=== PATIENT | female | born 1945 | race Caucasian/White ===

== ENCOUNTER → 2017-11-13 | Outpatient (CLI) | payer OTHER ==
[~2017-11-13] MED LIST: AMLO-110 PO; ASPI-390 PO; DIFL0.0519; LEVO75TA PO; LSN/2025 PO; OFLO0.3S4 OPL; PRLSR20 PO
[2017-11-13 09:44] LABS: BASO % 0.4 %; BASO ABS # 0.03 K/uL (0-0.2); EOS % 2.8 %; EOS ABS # 0.22 K/uL (0-0.5); HEMATOCRIT 37.8 % (37-47); HEMOGLOBIN 12.7 g/dL (12.0-16.0); IG# 0.02 K/uL (0.00-0.02); LYMPH % 34.5 %; LYMPH ABS # 2.75 K/uL (1.2-3.4); MEAN CELL VOLUME 86.5 fL (80-100); MEAN CORPUSCULAR HEMOGLOBIN 29.1 pg (25-34); MEAN CORPUSCULAR HGB CONC 33.6 g/dl (32-36); MEAN PLATELET VOLUME 10.1 fL (7.4-10.4); MONO % 6.1 %; MONO ABS # 0.49 K/uL (0.11-0.59); NEUT % 55.9 %; NEUT ABS # 4.46 K/uL (1.4-6.5); PLATELET COUNT 302 K/uL (130-400); RED CELL DISTRIBUTION WIDTH CV 13.7 % (11.5-14.5); RED CELL DISTRIBUTION WIDTH SD 43.4 fL (36.4-46.3); WHITE BLOOD COUNT 7.97 K/uL (4.8-10.8)
[2017-11-13 10:00] LABS: BLOOD UREA NITROGEN 24 mg/dl (7-18); CALCIUM 9.2 mg/dl (8.5-10.1); CARBON DIOXIDE 28 mmol/L (21-32); CREATININE 1.06 mg/dl (0.60-1.20); GLUCOSE 99 mg/dl (70-99); POTASSIUM 3.4 mmol/L (3.5-5.1); SODIUM 140 mmol/L (136-145)
== END | disposition home or self-care (01) ==
LOC: C.LAB 08:45
PROVIDERS: ATTEND Orthopaedic Surgery
DX: M25.511 Pain in right shoulder (principal)

== ENCOUNTER 2021-09-09 06:46 | Observation (INO) ==
--- NOTE | 2021-08-15 17:50 | PAT Medication Instructions ---
Medication Instructions Date of Service August 15, 2021 Home Medications levothyroxine 75 mcg capsule 75 mcg PO QAM omeprazole 20 mg capsule,delayed release 20 mg PO QAM lisinopril 20 mg-hydrochlorothiazide 25 mg tablet 1 tab PO QAM meloxicam 15 mg tablet 15 mg PO UD PRN ASK your surgeon for instructions meloxicam 15 mg tablet 15 mg PO UD PRN DO NOT take the morning of surgery lisinopril 20 mg-hydrochlorothiazide 25 mg tablet 1 tab PO QAM Take morning of surgery With a small sip of water, OTHERWISE NOTHING TO EAT OR DRINK AFTER MIDNIGHT: levothyroxine 75 mcg capsule 75 mcg PO QAM omeprazole 20 mg capsule,delayed release 20 mg PO QAM Other Notes If you have any questions please call us at [phone] or [phone] or [phone] or [phone]
--- NOTE | 2021-08-17 09:34 | Anesthesiology Consultation ---
Date of Service August 17, 2021 Assessment & Plan (1) Encounter for pre-operative examination: Chart Review Chart Review: Acceptable Risk for Surgery (pending preop Covid testing results ) and Patient seen in Pre Admission Testing Pt concerned with SAB- leaning towards [facility]- does not want to have any awareness during surgery- pt will discuss with anesthesiologist DOS to make final decision -Due to age and anxiety- patient is NOT an acceptable Same Day Joint Candidate- patient feels more comfortable staying over night Per PAT appt on 08/16/21, patient denies any recent travel or large group activities. No known Covid positive exposures or Covid related symptoms. No known Covid infection in the past 90 days. Pt fully vaccinated for Covid. Preop Covid testing scheduled 09/07/21 = will await results. Educated on importance of self quarantining, social distancing and wearing mask in public for the patient one week prior to surgery and after Covid testing done Left PCE with IOL Implant 04/25/17= Done under [facility] with LMA #4. Atraumatic LMA insertion Teaching & Discussion Pre-Anesthesia Teaching/Discussion Notes: Instructed NPO after midnight before surgery,except medications with 15 cc of water. Medication instructions provided according to the PAT guidelines. History Surgery Operation Date: 09/09/21 11:55 Proposed Procedures p Left Anterior Hip Arthroplasty - Gabriel Sanders DO Height/Weight Height: 5 ft 6.5 in Weight: 92.1 kg Allergies Allergy/AdvReac Type Severity Reaction Status Date / Time Iodinated Contrast Media Allergy Severe anaphalaxis Verified 08/11/21 15:36 cat dander Allergy Unknown wheeze Verified 08/11/21 15:36 Medications Home Medications Medication Instructions Recorded Confirmed Last Taken levothyroxine 75 mcg capsule 75 mcg PO QAM 05/10/21 08/11/21 Unknown omeprazole 20 mg capsule,delayed 20 mg PO QAM 05/10/21 08/11/21 Unknown release lisinopril 20 1 tab PO QAM 08/11/21 08/11/21 Unknown mg-hydrochlorothiazide 25 mg tablet meloxicam 15 mg tablet 15 mg PO UD PRN 08/11/21 08/11/21 Unknown 3-in-1 Commode #1 ea 08/17/21 08/17/21 Unknown Past Medical History Medical History Acid reflux Controlled and stable Breast lump PRESENT FOR 3 YRS ...MONITORING , RIGHT - STABLE Feeling anxious ABOUT UPCOMING SURGERY / DO NOT LIKE TO KNOW WHAT IS GOING ON - CANNOT DO TWIGHLIGHT SLEEP "TERRIFIED" History of anesthesia reaction OVER 30 YR AGO ; WOKE UP DURING A SURGERY, AWARE OF SURROUNDINGS AND COULD HEAR THINGS - PT IS NOT SURE WHAT SURGERY HTN (hypertension) Hypothyroidism Scoliosis CAN'T LIE FLAT ON BACK AND GET UP ON OWN - NEED A PILLOW IN THE "SMALL OF MY BACK" Exercise / Class Metabolic Activity III < 4 Walking/Shop/Light housework (one flight of stairs- mild SOB, no chest pain- uses cane ) Past Family History Family History Other Family history of diabetes mellitus Past Surgical History Surgical History History of breast biopsy X3 BENIGN History of cataract surgery left 2017 History of colonoscopy with polypectomy RECENT, BENIGN...NO FURTHER COLONOSCOPY FOLLOWS NEEDED History of endoscopy X2 OR 3 History of hysterectomy History of laparoscopy History of shoulder surgery RIGHT History of surgery REMOVAL OF ABDOMINAL TUMOR - BENIGN Past Anesthesia History No Hx of Anesthesia Complications (with exception to awareness during surgery - in 1970s unsure of what surgery ) and No Family Hx of Anesthesia Complications History of PONV No Hx of PONV and Hx of Motion Sickness Social History Smoking Status: Never smoker Do You Dip or Chew Tobacco: No Hx Alcohol Use: Yes Alcohol type: wine alcohol intake frequency: holidays/special occasions only substance use type: does not use Review of Systems Hx of snoring- no witness apnea - no hx of sleep study Patient denies chest pain, shortness of breath at rest, reflux, cough, wheezing, palpitations. No hx of seizures, stroke, [place] No hx of blood clots or blood transfusions Physical Exam Vital Signs VITALS BP 138/86 P 83 TEMP 98.3 SP02 96% RESP 16 Constitutional no acute distress ENMT Mouth: + small oral opening; no TMJ clicking Thyromental Distance: > or= 3.5 Finger Breadths Mallampati Class: III Missing molars Neck + limited neck extension (moderate ) Respiratory normal respiratory effort; no respiratory distress Auscultation: lungs clear to auscultation bilaterally; no wheezes Cardiovascular Rate/Rhythm: regular rate and regular rhythm Heart Sounds: no murmur Vessels: no carotid bruit Musculoskeletal Spine: no pain with cervical ROM Extremities: extremities normal to inspection Psychiatric Orientation: alert Lab Results Anesthesia Preop Results Results Anesthesia Widget: WBC 8.97 K/uL (4.8-10.8) 08/17/21 Hgb 12.9 g/dL (12.0-16.0) 08/17/21 Hct 38.5 % (37-47) 08/17/21 Plt 342 K/uL (130-400) 08/17/21 Na 140 mmol/L (136-145) 08/17/21 K 3.3 mmol/L (3.5-5.1) L 08/17/21 Cl 105 mmol/L (98-107) 08/17/21 CO2 28 mmol/L (21-32) 08/17/21 BUN 30 mg/dl (6-23) H 08/17/21 Creat 0.91 mg/dl (0.6-1.2) 08/17/21 Glucose Level 89 mg/dl (70-99(Fasting)) 08/17/21 PT 10.1 Seconds (9.0-12.0) 08/17/21 PTT 31.3 Seconds (21.0-31.0) H 08/17/21 INR 1.0 (0.9-1.1) 08/17/21 Blood Type B Positive 08/17/21 Antibody Screen NEGATIVE 08/17/21 Testing Electrocardiogram Date: 08/17/21 Sinus rhythm with sinus arrhythmia at 73 bpm. Normal EKG per cardio. Chest X-Ray Date: 08/17/21 Findings: + NAD and + cardiomegaly (mild) The heart is mildly enlarged noting atherosclerotic calcification of the thoracic aorta. The pulmonary vasculature is noncongested. Nonspecific interstitial thickening is likely chronic. There is mild bibasilar scarring/atelectasis. The lungs and pleural spaces are otherwise clear. There is no pneumothorax.
--- NOTE | 2021-09-08 07:25 | History & Physical Report ---
Date of Service September 08, 2021 Assessment & Plan (1) Osteoarthritis of left hip: We will proceed with a left anterior total of arthroplasty. Postoperatively she will be kept overnight in the hospital for postoperative medical management. She will be on aspirin for DVT prophylaxis. She plans to use energy physical therapy upon discharge. History of Present Illness Chief Complaint: Osteoarthritis of the left hip. Primary Care Provider: Alesha Reddy DO Joslyn is a pleasant 76-year-old female who is been doing chronic worsening left hip and groin pain. X-rays and clinical examination have been diagnostic for advanced osteoarthritis of the left hip. After failing conservative treatment, she elected proceed with a left anterior total hip arthroplasty. Allergies Allergy/AdvReac Type Severity Reaction Status Date / Time Iodinated Contrast Media Allergy Severe anaphalaxis Verified 08/11/21 15:36 cat dander Allergy Unknown wheeze Verified 08/11/21 15:36 Home Medications Medication Instructions Recorded Confirmed Type levothyroxine 75 mcg capsule 75 mcg PO QAM 05/10/21 08/11/21 History omeprazole 20 mg capsule,delayed 20 mg PO QAM 05/10/21 08/11/21 History release lisinopril 20 1 tab PO QAM 08/11/21 08/11/21 History mg-hydrochlorothiazide 25 mg tablet meloxicam 15 mg tablet 15 mg PO UD PRN 08/11/21 08/11/21 History 3-in-1 Commode #1 ea 08/17/21 08/17/21 Rx Wheeled Walker #1 ea 09/07/21 Rx Wheeled Walker #1 ea 09/07/21 Rx Past Med/Surg History Medical History Acid reflux Controlled and stable Breast lump PRESENT FOR 3 YRS ...MONITORING , RIGHT - STABLE Feeling anxious ABOUT UPCOMING SURGERY / DO NOT LIKE TO KNOW WHAT IS GOING ON - CANNOT DO TWIGHLIGHT SLEEP "TERRIFIED" History of anesthesia reaction OVER 30 YR AGO ; WOKE UP DURING A SURGERY, AWARE OF SURROUNDINGS AND COULD HEAR THINGS - PT IS NOT SURE WHAT SURGERY HTN (hypertension) Hypothyroidism Scoliosis CAN'T LIE FLAT ON BACK AND GET UP ON OWN - NEED A PILLOW IN THE "SMALL OF MY BACK" Surgical History History of breast biopsy X3 BENIGN History of cataract surgery left 2017 History of colonoscopy with polypectomy RECENT, BENIGN...NO FURTHER COLONOSCOPY FOLLOWS NEEDED History of endoscopy X2 OR 3 History of hysterectomy History of laparoscopy History of shoulder surgery RIGHT History of surgery REMOVAL OF ABDOMINAL TUMOR - BENIGN Family History Other Family history of diabetes mellitus Social History Smoking Status: Never smoker Hx Alcohol Use: Yes Alcohol type: wine Preferred Language: Kiswahili Communication Ability: Effective Job Service Consultant Required: No Beliefs That Will Affect Care: Moravian Moravian Beliefs: [place] Current Living Situation: Alone Feels Safe at Home: Yes Assistive Devices: Cane and Glasses Review of Systems All systems reviewed & are unremarkable except as noted in HPI & below. Physical Exam On physical examination of the left hip, she is unable to lie flat. I can flex her to about 90 degrees. She has 0 degrees of internal rotation to 1 degrees of external rotation. Significant pain at end ranges of motion. Constitutional WD/WN, vitals as above Eyes PERRL, conjunctivae normal, anicteric sclerae ENMT external ear and nose normal, oropharynx normal Neck trachea midline, no thyromegaly Respiratory normal respiratory effort Cardiovascular RRR, no murmur, no edema Gastrointestinal (Abdomen) normal bowel sounds, soft, nontender, no hepatosplenomegaly Psychiatric A+Ox3, euthymic affect Results & Data Results & Data Laboratory Results . Diagnostic Findings X-rays of the left hip show osteoarthritis with joint space narrowing, osteophyte formation, and [id number] articulation PG Care Time/CCT Total # of Minutes Spent Total Time Spent with Patient: Total time spent is greater than 50% in coordination of care (as documented) at patient's floor/unit and/or counseling patient: Coding Level of Care Code None Diagnoses Osteoarthritis of left hip M16.12
[~2021-09-09 06:46] MED LIST changes: +ACETAMINOPHEN 500 MG TAB PO SCH; -AMLO-110 PO; -ASPI-390 PO; -DIFL0.0519; +FAMOTIDINE 20 MG TAB PO SCH; +GABAPENTIN 300 MG CAP PO SCH; +Ketorolac (*for OR use only*) 30 MG, dexAMETHasone 4 MG, KETAMINE HCL (**OR use only) 1... INFIL SCH; -LEVO75TA PO; +LR 15ML/HR IV SCH; +LR 60ML/HR IV SCH; -LSN/2025 PO; -OFLO0.3S4 OPL; -PRLSR20 PO; +TRANEXAMIC ACID 1,000 MG **IV Intra-op IV SCH; +TRANEXAMIC ACID 1,000 MG **IV Pre-op IV SCH; +ceFAZolin 2000MG 2,000 MG/15 ML SYR IV SCH; +dexAMETHasone 4 MG TAB PO SCH
[2021-09-09] MEDS ORDERED: BUPIVACAINE 0.5 % 5 MG/1 ML PF 10ML VIAL ONE (07:16)
--- NOTE | 2021-09-09 08:20 | History & Physical Bridge Note ---
Date of Service September 09, 2021 History & Physical Bridge Note I have examined the patient, reviewed the History & Physical and in the interval since the performance of the History & Physical I have noted the following changes of clinical significance: no changes noted
[2021-09-09] MEDS ORDERED: LIDOCAINE 2% 2 ML VIAL/AMP(20MG/ML) INFIL ONE (08:44)
[2021-09-09] MEDS ORDERED: PROPOFOL IV EMULSION 10 MG/ML 20 ML VIAL IV ONE (08:44)
[2021-09-09] MEDS ORDERED: MIDAZOLAM HCL 1 MG/ML 2ML VIAL ONE (08:45)
[2021-09-09] MEDS ORDERED: fentaNYL citrate 100 MCG/2 ML VIAL ONE ×3 (08:49→10:44)
[2021-09-09] MEDS ORDERED: ATROPINE SULFATE 0.1 MG/ML 10ML SYR IV PRN (08:51)
[2021-09-09] MEDS ORDERED: ePHEDrine sulfate 50 MG/ML AMP IV PRN (08:51)
[2021-09-09] MEDS ORDERED: ONDANSETRON INJ 2 MG/ML 2 ML VIAL IV PRN ×2 (08:51→12:53)
[2021-09-09] MEDS ORDERED: ORTHO JOINT ANESTHETIC ONE (08:52)
[2021-09-09] MEDS ORDERED: KETAMINE 50 MG/5 ML SYRINGE ONE (09:29)
--- NOTE | 2021-09-09 10:41 | Operative Report ---
PG Post Operative Report Pre & Post Diagnosis Operation Date: 09/09/21 09:20 Pre-Op Diagnosis: Degenerative Joint Disease Left Hip Post-Op Diagnosis: Degenerative Joint Disease Left Hip I identified the patient and participated in the time-out.: Yes Procedure Operation Date: 09/09/21 09:20 Actual Procedures p Left Anterior Hip Arthroplasty(Left) - Gabriel Sanders DO Surgeon Gabriel Sanders DO Chute Tender Gabriel Goddard PAC Estimated Blood Loss 250 Findings Consistent with Post-Op Diagnosis Specimens Left femoral head Complications none Disposition Disposition: Recovery Room Indications Joslyn is a pleasant 76-year-old female has been doing chronic increasing left hip and groin pain. X-rays and clinical examination are diagnostic for advanced arthritis of the left hip. After failing conservative treatment, she elected proceed with a left total hip arthroplasty. Description of Procedure Implants used I used a [employer] total hip arthroplasty system with a size 5 standard Avenir Complete stem, a 50 mm G7 cup with a 25mm screw, an E1 polyethylene liner, a 36 mm ceramic head with a +3.5 neck. Joslyn arrived at the hospital for the above procedure. She was seen in the preoperative holding area and the operative extremity was identified and signed. She was given a spinal anesthetic, a preoperative antibiotic, and TXA. She was then taken back to the operating room and laid on the table in the supine position. She was given basic sedation. The operative leg was secured to a Puristst leg positioner. The hip was then prepped and draped in sterile fashion. A timeout was done and the patient and the operative extremity was properly identified. An anterior approach was used. Dissection was taken down through the fascia and the tensor muscle belly was retracted laterally and the rectus was retracted medially. The circumflex vessels were identified and ligated. The capsule was then incised and tagged for later repair. The femoral neck was then cut and the femoral head was removed. The acetabulum was exposed. Time was spent doing a complete circumferential labral release. Sequential reaming of the acetabulum up to a size 49 reamer was done. Final reamings were done under fluoroscopy to ensure appropriate version. A Biomet 50mm G7 cup was then impacted into place. A single 25 mm screw was placed. The E1 polyethylene liner was then snapped into place. Surrounding soft tissues were then injected with 100 cc of an orthopedic pain control cocktail. The proximal femur was then exposed. Sequential broaching up to a size 5 broach was done. Off that broach a size 36 head with a +3.5 neck was trialed. The hip was reduced and fluoroscopic images showed anatomic alignment of the implants in acceptable length. The broach was removed. The final size 5 standard offset Avenir Complete stem was then impacted into place. A ceramic 36mm head with a +3.5 neck was then impacted onto the stem and the hip was reduced. Final fluoroscopic images showed anatomic alignment of the hip. The capsule was then closed with #1 Vicryl suture. A dilute betadyne lavage was then done for 3 minutes. The joint was then irrigated with normal saline solution. The fascia was closed with #1 PDS suture. Skin was closed with 2-0 Vicryl, karmen, and a Silverlon dressing. She was then transferred to a hospital bed and taken to the post anesthesia care unit in stable condition. She tolerated the procedure well. Gabriel Goddard PA-C, was present for the entire procedure. He was critical for patient positioning, prepping, draping, retraction exposure, wound closure and application of sterile dressing. I attest to the content of the Intraoperative Record and any orders documented therein. Any exceptions are noted below.
[2021-09-09] MEDS ORDERED: ONDANSETRON INJ 2 MG/ML 2 ML VIAL ONE (11:14)
[2021-09-09] MEDS: fentaNYL citrate 100 MCG/2 ML VIAL IV PRN ×4 (11:28→12:00)
--- NOTE | 2021-09-09 11:32 | Fluoroscopy Report ---
FL hip LT 1V CLINICAL HISTORY: Left hip arthroplasty. COMPARISON STUDY: Left hip radiographs August 17, 2021. FLUOROSCOPY TIME: 17 seconds. FLUOROSCOPIC IMAGES: 2 FINDINGS: Fluoroscopy was provided during total left hip arthroplasty. There is an acetabular screw. No fracture is identified by fluoroscopy. IMPRESSION: Fluoroscopy provided during total left hip arthroplasty. ACT 112: Negative or not required by law. Electronically signed by: Sravan Milian M.D. 09/09/2021 11:31 AM
--- NOTE | 2021-09-09 11:43 | XRay Report ---
XR hip 1V LT w pelvis CLINICAL HISTORY: IN PACU - A/P PELVIS and LATERAL HIP TECHNIQUE: 2 views of the left hip and single frontal view of the pelvis were obtained. Comparison: None available at the time of this dictation. FINDINGS: Patient is status post total hip arthroplasty with expected postsurgical changes including soft tissu e swelling, subcutaneous emphysema, and surgical staple placement. No periarticular lucency or hardwa re fracture is seen. The alignment is anatomic. Mild degenerative changes are seen in the right hip. No soft tissue abnormality is seen. IMPRESSION: Expected postoperative appearance status post placement of total hip arthroplasty. ACT 112: Negative or not required by law. Electronically signed by: Radhames Jones M.D. 09/09/2021 11:42 AM
--- NOTE | 2021-09-09 12:12 | Anesthesiology Progress Note ---
Date of Service September 09, 2021 Anesthesia Post Procedure Vital Signs Vital Signs: Temp Pulse Pulse Resp BP BP Pulse Ox 09/09/21 12:05 97.5 F L 57 L 14 117/80 95 09/09/21 11:55 66 15 129/74 97 09/09/21 11:45 60 13 119/82 94 09/09/21 11:35 69 12 128/75 100 09/09/21 11:25 69 15 128/76 100 09/09/21 11:15 69 12 132/83 97 09/09/21 11:08 97.9 F 70 16 117/75 96 09/09/21 08:16 150/82 H 09/09/21 07:36 98.1 F 86 18 174/99 H 95 Pain Intensity Left Hip: Pain Intensity: 5 Transfer of Care Handoff Completed per policy Notes Mental Status: alert / awake / arousable and participated in evaluation Patient Amnestic to Procedure: Yes Nausea / Vomiting: adequately controlled Pain: adequately controlled Airway Patency, RR, SpO2: stable & adequate BP & HR: stable & adequate Hydration State: stable & adequate Anesthetic Complications: no major complications apparent and Pt Satisfied with anesthetic care
[2021-09-09] MEDS ORDERED: METOCLOPRAMIDE HCL INJ 5 MG/ML 2 ML VIAL IV PRN (12:53)
[2021-09-09] MEDS ORDERED: NALOXONE HCL 0.4 MG/1 ML VIAL/CARP IV PRN (12:53)
[2021-09-09] MEDS ORDERED: MAGNESIUM HYDROXIDE SUSP 30 ML UDC PO PRN (12:53)
[2021-09-09] MEDS ORDERED: bisacodyL 10 MG SUPP PR PRN (12:53)
[2021-09-09] MEDS: ACETAMINOPHEN 500 MG TAB PO SCH ×2 (13:47→21:41)
[2021-09-09] MEDS: KETOROLAC TROMETHAMINE 15 MG/ML VIAL IV SCH ×2 (15:52→21:42)
[2021-09-09] MEDS: ceFAZolin 2000MG 2,000 MG/15 ML SYR IV SCH (17:51)
[2021-09-09] MEDS: SODIUM CHLORIDE 0.9% 1000ML 1,000 ML IV SCH (17:51)
[2021-09-09] MEDS: DOCUSATE SODIUM 100 MG CAP PO SCH (21:41)
[2021-09-09] MEDS: ASPIRIN 81 MG ECTAB PO SCH (21:41)
[2021-09-09] MEDS: SENNA 8.6 MG TAB PO SCH ×2 (21:41→21:48)
[2021-09-09] MEDS: HYDROmorphone INJ 0.5 MG/0.5 ML SYR IV PRN (22:15)
[2021-09-09] MEDS: oxyCODONE HCL IR 5 MG TAB (IMMEDIATE RELEASE) PO PRN (23:53)
[2021-09-10] MEDS: ceFAZolin 2000MG 2,000 MG/15 ML SYR IV SCH (01:00)
[2021-09-10] MEDS: HYDROmorphone INJ 0.5 MG/0.5 ML SYR IV PRN (03:20)
[2021-09-10] MEDS: KETOROLAC TROMETHAMINE 15 MG/ML VIAL IV SCH ×4 (03:24→21:21)
[2021-09-10] MEDS: SODIUM CHLORIDE 0.9% 1000ML 1,000 ML IV SCH (03:36)
[2021-09-10] MEDS: LEVOTHYROXINE SODIUM 75 MCG TABLET PO SCH (06:45)
[2021-09-10] MEDS: ACETAMINOPHEN 500 MG TAB PO SCH ×3 (06:45→21:20)
[2021-09-10] MEDS: oxyCODONE HCL IR 5 MG TAB (IMMEDIATE RELEASE) PO PRN (06:45)
[2021-09-10] MEDS: PANTOprazole 40 MG TAB PO SCH (06:48)
[2021-09-10] MEDS ORDERED: dexAMETHasone 4 MG TAB PO SCH (08:00)
[2021-09-10] MEDS: DOCUSATE SODIUM 100 MG CAP PO SCH ×2 (08:51→21:20)
[2021-09-10] MEDS: ASPIRIN 81 MG ECTAB PO SCH ×2 (08:51→21:20)
[2021-09-10] MEDS: MULTIVITAMIN TAB PO SCH (08:51)
[2021-09-10] MEDS: LISINOPRIL/HCTZ 20/25MG 1 TAB PO SCH (08:51)
--- NOTE | 2021-09-10 11:24 | Orthopedic Progress Note ---
Date of Service September 10, 2021 Assessment & Plan (1) Status post left hip replacement: Overall, she is doing very well. She will be seen by physical therapy today for ambulation and range of motion exercises. She is on Aspirin for DVT prophylaxis. We will plan discharge to home later today. Nicola Jorgensen was seen and examined at bedside. She is doing very well. She has been ambulating to the bathroom. Her pain is controlled . Review of Systems All systems reviewed & are unremarkable except as noted in HPI & below. Physical Exam Her dressing is clean and dry. Her leg lengths are equal. She is nv intact. Results & Data Results & Data Laboratory Results . Diagnostic Findings . PG Care Time/CCT Total # of Minutes Spent Total Time Spent with Patient: Total time spent is greater than 50% in coordination of care (as documented) at patient's floor/unit and/or counseling patient: Coding Level of Care Code 11464 Post Operative Follow-Up Diagnoses Status post left hip replacement Z96.642
[2021-09-10] MEDS: SENNA 8.6 MG TAB PO SCH (21:20)
[2021-09-11] MEDS: KETOROLAC TROMETHAMINE 15 MG/ML VIAL IV SCH ×2 (05:26→08:34)
[2021-09-11] MEDS: LEVOTHYROXINE SODIUM 75 MCG TABLET PO SCH (05:27)
[2021-09-11] MEDS: ACETAMINOPHEN 500 MG TAB PO SCH (05:27)
--- NOTE | 2021-09-11 07:42 | Orthopedic Progress Note ---
Date of Service September 11, 2021 Assessment & Plan (1) Status post left hip replacement: She seems to be doing a lot better today. She is on aspirin for DVT prophylaxis. She will be seen by physical therapy later today for ambulation and range of motion exercises. If she is feeling well, she can be discharged home later today. She will follow-up with orthopedics in 2 weeks. Nicola Jorgensen was seen and examined at bedside this morning. Overall she is doing fairly well. She did not do great yesterday with therapy. She was having a lot of burning in her left leg. She did not feel safe going home. She says she feels a lot better today. Her pain is greatly reduced. Review of Systems All systems reviewed & are unremarkable except as noted in HPI & below. Physical Exam On physical examination of the left hip, the dressing is clean and dry. Her leg lengths are equal. She has active dorsiflexion plantarflexion of the left a nkle.. Results & Data Results & Data Laboratory Results . Diagnostic Findings . PG Care Time/CCT Total # of Minutes Spent Total Time Spent with Patient: Total time spent is greater than 50% in coordination of care (as documented) at patient's floor/unit and/or counseling patient: Coding Level of Care Code 40970 Post Operative Follow-Up Diagnoses Status post left hip replacement Z96.642
--- NOTE | 2021-09-11 07:44 | Discharge Summary ---
Date of Service September 11, 2021 Admission HPI (Per Admitting) Joslyn is a pleasant 76-year-old female who is been doing chronic worsening left hip and groin pain. X-rays and clinical examination have been diagnostic for advanced osteoarthritis of the left hip. After failing conservative treatment, she elected proceed with a left anterior total hip arthroplasty. Admission Exam (Per Admitting) On physical examination of the left hip, she is unable to lie flat. I can flex her to about 90 degrees. She has 0 degrees of internal rotation to 1 degrees of external rotation. Significant pain at end ranges of motion. Principal Diagnosis Same as "Discharge Diagnosis" noted below under Discharge Instructions. Discharge Exam On physical examination of the left hip, the dressing is clean and dry. Her leg lengths are equal. She has active dorsiflexion plantarflexion of the left ankle.. Discharge Data Procedures Performed Operation Date: 09/09/21 09:20 Actual Procedures p Left Anterior Hip Arthroplasty(Left) - Gabriel Sanders DO Ordered Studies 09/09/21 09:20 FL hip LT 1V Routine Hospital Course (1) Status post left hip replacement: On September 09, 2021 Joslyn arrived at [facility] and underwent a left hip replacement without complication. Postoperatively she was started on aspirin for DVT prophylaxis and transferred to the general orthopedic floors. Her hospital course was uneventful. On postop day #1 her vital signs were stable and her pain was relatively well controlled. During the physical therapy session, she walked about correction down the hallway and began having some burning in her left leg. She did not feel safe going home. The decision was made to keep her overnight. On postop day #2 she was doing much better. The burning has subsided. She was able to participate well with physical therapy doing ambulation and range of motion exercises. She was then discharged home. She will follow-up with orthopedics in 2 weeks. PG Care Time/CCT Total # of Minutes Spent Total Time Spent with Patient: Total time spent is greater than 50% in coordination of care (as documented) at patient's floor/unit and/or counseling patient: Discharge Plan Discharge Items Patient Disposition: Home - Home Health Services Reason For Visit: Degenerative Joint Disease Left Hip Discharge Diagnosis: Left hip replacement Activity: As commented below Non-emergency contact: Surgeon Call non-emergency contact if: your wound has increased redness and your wound has increased drainage Follow-up/Referrals: Alesha Reddy, [Primary Care Provider] - Diet: Regular Addtl Attending Provider Instructions: Activity and Therapy Recommendations: * If you are using [facility] then therapy will be provided at your home until they feel you have accomplished all of your goals. * If you are using [facility] then Physical Therapy will be provided until they feel you are ready to start Outpatient Physical Therapy. * If you are not using home therapy then Outpatient Physical Therapy should start about 3-5 days from your day of surgery. Therapy will last about 6-10 weeks * You were shown a series of exercises in the hospital. Do these exercises three times each day including the exercises you were shown in physical therapy. * Get up and walk several times each day.~ For the first four weeks, try not to stand or walk for more than one hour at a time. If you do stand or walk for more than one hour, you will not hurt anything, but your leg will likely swell.~~ * As you feel comfortable, you may change from the walker or crutches to a cane and~then to independent walking. Medications: * Narcotic You will likely be sent home from the hospital with a prescription for the narcotic pain medication that worked best throughout your stay. * Aspirin Most patients will be required to take Aspirin 81mg twice a day for 6 weeks after surgery. This is obtained [id number] and a prescription is not necessary. * Other medications may be prescribed for specific circumstances. If you have any questions, please call the office at . * Resume previous home medications unless otherwise instructed TEDs/Elastic Stockings: The white elastic stockings help limit swelling and prevent blood clots from forming in your legs. The more you wear them, the more they work. Wear them for six weeks. Dressing Care: Leave the Silverlon dressing in place for 7 days. After 7 days you may remove the dressing. If the incision is not draining then you may leave the karmen open to air. If there is a little bit of drainage or if the karmen are getting stuck on your clothing then cover the incision with a dry dressing. The karmen will be removed at your 2 week follow-up appointment. Showering: You may shower with the Silverlon dressing in place. Do not let the shower sp ray hit the dressing directly. Pat the Silverlon dressing dry. If the dressing becomes wet underneath, then simply remove the dressing. Keep the incision dry until you are 7 days out from the day of surgery. After 7 days you may remove the Silverlon dressing and shower with the karmen exposed. Let soapy water run over the karmen and pat them dry. Do not scrub or soak the incision. Things To Watch For: * Drainage from the incision site that occurs more than one week after your surgery. * Increased redness at the incision site. * Fever above 102 degrees Fahrenheit. * Unusual chest pain or shortness of breath. * Call [facility] at with any of the above problems Follow-Up Visit: Follow-up with Dr. Sanders's PA (Gabriel Goddard) 2-3 weeks after your day of surgery. He will remove your karmen and answer any questions. If you have any additional questions or concerns, Dr Sanders is usually in the office at the same time and will be available An appointment was probably scheduled when you signed-up for surgery in the office. If you have any questions call Office Instructions: More detailed instructions as well as Frequently Asked Questions were provided in a folder by our office when you signed-up for surgery. Please review these instructions when you get home. If you have any further questions or concerns, please feel free to call the office at [phone] Pending Studies at Discharge: No Stand-Alone Forms: [facility] Sm[facility] Cessation Medications and DC Order Prescriptions: New oxycodone-acetaminophen 5-325 mg tablet 1 tab PO Q6H PRN (Reason: pain) Qty: 30 RF: 0 aspirin 81 mg Tablet,Delayed Release (Dr/Ec) 81 mg PO BID 42 Days Qty: 0 RF: 0 Continued (DME) Wheeled Walker Misc See Rx Instructions .MEDSUPPLY Qty: 1 RF: 0 (DME) Wheeled Walker Misc See Rx Instructions .MEDSUPPLY Qty: 1 RF: 0 omeprazole 20 mg capsule,delayed release(DR/EC) 20 mg PO QAM RF: 0 levothyroxine 75 mcg capsule 75 mcg PO QAM RF: 0 (DME) 3-in-1 Commode Misc See Rx Instructions .MEDSUPPLY Qty: 1 RF: 0 lisinopril-hydrochlorothiazide 20-25 mg Tablet 1 tab PO QAM RF: 0 meloxicam 15 mg Tablet 15 mg PO UD PRN (Reason: Pain) RF: 0 Discharge Orders: Discharge Order (Routine); Ordered 09/11/21 Ordered By: Gabriel Sanders Admission Data Admit Date/Time: 09/09/21 11:07 Attending Provider: Gabriel Sanders Admit Provider: Gabriel Sanders Primary Care Provider: Alesha Reddy Other Interventions: Discharge Summary Assessment (RN) Last Done: 09/11/21 06:55
[2021-09-11] MEDS: oxyCODONE HCL IR 5 MG TAB (IMMEDIATE RELEASE) PO PRN (08:32)
[2021-09-11] MEDS: MULTIVITAMIN TAB PO SCH (08:33)
[2021-09-11] MEDS: LISINOPRIL/HCTZ 20/25MG 1 TAB PO SCH (08:33)
[2021-09-11] MEDS: DOCUSATE SODIUM 100 MG CAP PO SCH (08:33)
[2021-09-11] MEDS: PANTOprazole 40 MG TAB PO SCH (08:33)
[2021-09-11] MEDS: ASPIRIN 81 MG ECTAB PO SCH (08:33)
== END 2021-09-11 11:49 | disposition home or self-care (01) ==
LOC: 3E 06:46 → ASU 06:46

== ENCOUNTER 2022-05-15 17:57 | Inpatient (IN) ==
[2022-05-15 18:36] LABS: Basophils # (auto) 0.06 K/uL (0-0.2); Basophils % (auto) 0.4 %; Eosinophils # (auto) 0.42 K/uL (0-0.50); Eosinophils % (auto) 2.7 %; Hematocrit (blood only) 32.4 % (34.1-44.9); Hemoglobin 11.3 g/dl (12.0-16.0); Immature Granulocytes # (auto) 0.09 K/uL (0.00-0.02); Immature Granulocytes % (auto) 0.6 %; Lymphocytes # (auto) 3.16 K/uL (1.2-3.4); Lymphocytes % (auto) 20.3 %; Mean Corpuscular Hemoglobin 29.5 pg (25.0-34.0); Mean Corpuscular Hgb Conc 34.9 g/dL (32.0-36.0); Mean Corpuscular Volume 84.6 fL (80.0-100.0); Mean Platelet Volume 10.2 fL (9.4-12.3); Monocytes # (auto) 1.08 K/uL (0.24-0.82); Monocytes % (auto) 6.9 %; Neutrophils # (auto) 10.79 K/uL (1.4-6.5); Neutrophils % (auto) 69.1 %; Platelet Count 452 K/uL (130-400); RDW Coefficient of Variation 14.1 % (11.5-14.5); RDW Standard Deviation 43.2 fL (36.4-46.3); Red Blood Count 3.83 M/uL (3.93-5.22)
[2022-05-15 19:06] LABS: Troponin I High Sensitivity 29.5 pg/ml (0-14)
[2022-05-15 19:08] LABS: Albumin Globulin Ratio 1.1 (0.9-2); Albumin Level 3.8 gm/dl (3.4-5.0); BUN Creatinine Ratio 16.6 (10-20); Bilirubin,Total 0.6 mg/dl (0.2-1.0); Calcium 9.3 mg/dl (8.5-10.1); Creatinine Clr Calc Pharmacy 18.1 ml/min; Est GFR (African American) 16.7 ml/min; Est GFR (Non-African American) 14.4 ml/min; Globulin 3.6 gm/dl (2.5-4.0); Potassium 2.6 mmol/L (3.5-5.1); Total Protein 7.4 gm/dl (6.0-8.3)
[2022-05-15] MEDS ORDERED: SODIUM CHLORIDE 0.9% 500 ML IV ONE (19:18)
[2022-05-15] MEDS ORDERED: ACETAMINOPHEN 1,000 MG/100 ML VIAL IV STA (19:24)
[2022-05-15] MEDS ORDERED: SODIUM CHLORIDE 0.9% 1000ML 1,000 ML IV SCH (19:30)
[2022-05-15 19:36] LABS: Magnesium 2.4 mg/dl (1.7-2.4); Phosphorus 3.5 mg/dl (2.5-4.9)
--- NOTE | 2022-05-15 19:40 | XRay Report ---
XR chest 1V portable HISTORY: 76 years-old Female near syncope acutely altered mental status COMPARISON: 08/17/2021 TECHNIQUE: AP view of the chest FINDINGS: Cardiac silhouette is enlarged. No pneumothorax, pleural effusion, airspace consolidation or overt pu lmonary edema. Degenerative changes of the shoulders and spine. IMPRESSION: Cardiomegaly without acute process. ACT 112: Negative or not required by law. The above report was generated using voice recognition software. It may contain grammatical, syntax o r spelling errors. Electronically signed by: Bryan Lyons M.D. 05/15/2022 7:37 PM
[2022-05-15 20:00] LABS: Appearance Urine Cloudy (Clear); Bacteria Urine Automated 4+ (Negative); Bilirubin Urine Negative (Negative); Blood Urine 2+ (Negative); Color Urine Yellow; Epithelial Cell Urine Auto >30 /lpf (0-5); Glucose Urine UA Negative (Negative); Ketones Urine Negative (Negative); Leukocyte Esterase Urine 3+ (Negative); Nitrite Urine Positive (Negative); Protein Urine 1+ (Negative); RBC Urine Automated 0-4 /hpf (0-4); Urobilinogen Urine Negative (Negative); WBC Urine Automated >30 /hpf (0-5); pH Urine 5.5 (4.5-7.5)
[2022-05-15] MEDS: POTASSIUM CHLORIDE / WTR 10 MEQ/100 ML PLCT IV SCH ×2 (20:03→22:42)
--- NOTE | 2022-05-15 20:07 | CT Scan Report ---
CT head/brain wo con CLINICAL HISTORY: 76 years-old Female with near syncope. Acutely altered mental status TECHNIQUE: Multiple axial CT images of the head were obtained without contrast. A dose lowering tech nique was utilized adhering to the principles of ALARA. COMPARISON: None. FINDINGS: No acute intracranial hemorrhage, midline shift, intracranial mass, hydrocephalus, territorial ischem ia or abnormal extra-axial collection. Involutional changes with white matter hypodensities suggestiv e of chronic microvascular ischemic disease. Cerebral vascular calcifications. The calvarium is intact. Mastoid air cells are clear. Mild loss with partial opacification of the ri ght maxillary sinus. Prior left-sided lens repair. IMPRESSION: No acute intracranial abnormality. ACT 112: Negative or not required by law. The above report was generated using voice recognition software. It may contain grammatical, syntax o r spelling errors. Electronically signed by: Bryan Lyons M.D. 05/15/2022 8:02 PM
--- NOTE | 2022-05-15 20:17 | CT Scan Report ---
ABDOMEN AND PELVIS CT WITHOUT CONTRAST CT DOSE: 1760.33 mGy.cm HISTORY: Acute generalized abdominal pain with acute renal failure acute RF, near syncope, fall TECHNIQUE: Multiaxial CT images of the abdomen and pelvis were performed without contrast. A dose lo wering technique was utilized adhering to the principles of ALARA. COMPARISON STUDY: Pelvis and hip radiographs 10/19/2021 FINDINGS: Subsegmental bibasilar atelectasis versus scarring. There is no pneumatosis or pneumoperito neum. Cardiomegaly. The unenhanced spleen measures the upper limits of normal in size. Mild to modera te splenomegaly. Thickening of the adrenal glands suggestive of hyperplasia. Cholelithiasis with equi vocal gallbladder wall thickening. No biliary ductal dilation. Unremarkable gallbladder. The unenhanc ed liver is unremarkable. Cortical thinning of the kidneys with bilateral renal sinus cysts. No renal or ureteral calculi or hy dronephrosis identified. Partially decompressed urinary bladder. There is a locule of air within the nondependent urinary bladder lumen. Hysterectomy. Pelvic floor relaxation with cystocele and rectocel e. Atherosclerosis of the aorta. No lymphadenopathy identified. Moderate sized hiatal hernia. Duodenal diverticulum. Colonic diverticulosis. The appendix is not visu alized. No ascites or mesenteric inflammation. Degenerative changes of the shoulders and spine. Multi level central canal or neural foraminal narrowing. There are numerous osteolytic skeletal lesions, mo st pronounced within the sacrum and spine. The largest lesion involves the central to right aspect of the mid sacrum measuring up to approximately 6 cm. Subacute bilateral sacral alar fractures with sli ght displacement on the right. The large right-sided sacral lesion demonstrates invasion with narrowi ng involving the right S2 and S3 neural foramen there is mild asymmetric enlargement right piriformis muscle. Lytic lesion involving the T8 vertebral body demonstrates posterior cortical breakthrough wi th possible anterior epidural extension. Lumbar dextroscoliosis. Left hip total joint arthroplasty. IMPRESSION: 1. Numerous osteolytic skeletal lesions, most pronounced around the spine and sacrum resulting in pat hologic subacute appearing sacral alar fractures. There is soft tissue encroachment with narrowing of the right-sided sacral neural foramen. Posterior endplate erosion at T8 with possible anterior fissu ral extension of disease. Multiple myeloma versus metastasis from unknown primary are the differentia l considerations. Oncologic workup is needed. 2. Cholelithiasis with equivocal gallbladder wall thickening. Correlation with right upper quadrant a bdominal ultrasound recommended. 3. No bowel obstruction or bowel wall thickening. 4. Moderate sized hiatal hernia. 5. Colonic diverticulosis. 6. Additional findings as above. ACT 112: Negative or not required by law. The above report was generated using voice recognition software. It may contain grammatical, syntax o r spelling errors. Electronically signed by: Bryan Lyons M.D. 05/15/2022 8:14 PM
[2022-05-15] MEDS ORDERED: cefTRIAXone SODIUM 2,000 MG/70 ML BAG IV STA (20:44)
[2022-05-15] MEDS ORDERED: LACTATED RINGER'S 1,000 ML IV ONE (21:07)
[2022-05-15] MEDS ORDERED: POTASSIUM CHLORIDE PWD 20 MEQ PACK PO STA (21:08)
[2022-05-15 21:27] LABS: Influenza A virus by PCR Negative (Neg); Influenza B virus by PCR Negative (Neg); RSV by PCR Negative (Neg); SARS CoV2 RNA(COVID-19)Cepheid NEGATIVE (Negative)
[2022-05-15 22:00] LABS: Reticulocyte % 1.8 % (0.5-2.0); Reticulocytes # 0.07 10^6/uL (0.02-0.10)
[2022-05-15] MEDS ORDERED: traMADol HCL 50 MG TABLET PO PRN (22:48)
[2022-05-15] MEDS ORDERED: ACETAMINOPHEN 500 MG TAB PO PRN (22:48)
[2022-05-15] MEDS ORDERED: PROMETHAZINE HCL 12.5 MG in SODIUM CHLORIDE 0.9% 50 ML IV PRN (22:48)
[2022-05-15 23:29] LABS: BUN Creatinine Ratio 18.7 (10-20); Calcium 8.8 mg/dl (8.5-10.1); Creatinine Clr Calc Pharmacy 21.7 ml/min; Est GFR (African American) 20.8 ml/min; Potassium 2.4 mmol/L (3.5-5.1); Troponin I High Sensitivity 22.4 pg/ml (0-14)
[2022-05-15] MEDS ORDERED: POTASSIUM CHLORIDE PWD 20 MEQ PACK PO ONE (23:30)
[2022-05-15 23:31] LABS: Ferritin 186.9 ng/ml (8-388)
--- NOTE | 2022-05-16 00:31 | Emergency Department Note ---
Impression & Plan Acute renal failure, Hypokalemia, Rhabdomyolysis, Elevated troponin, Near syncope, Abnormal computed tomography of abdomen and pelvis, Acute UTI ED Provider Note NAME: QUAN YOUNG AGE: 76 SEX: F ARRIVES VIA: Walk-In INFORMANT: Patient, ED PROVIDER(S): Russell Schmidt MD CHIEF COMPLAINT: Weakness, abnormal labs, referred PLAN: Disposition: Admit MEDICAL DECISION MAKING: The patient is a pleasant 76-year-old woman who presents to the emergency department as a walk-in referred by her PCPs office for worsening renal insufficiency in the setting of being seen today following near syncope yesterday where she lowered her self and sat in the shower but was unable to get up for approximately 5 hours her daughter was contacted and came to check on her. EMS did arrive and given she was able to get up and ambulate she was not transported and encouraged to see her doctor today. She reports soreness in her legs and lower back in the setting of chronic back pain. She reports having mild upper respiratory congestion and sore throat over the past week and admits that she has not been eating or drinking well during this time. She denies any nausea, vomiting or diarrhea. She reports she had some brief brain with urination for a day or so last week but this resolved. On arrival the patient is fatigued, uncomfortable but no acute distress, afebrile stable vital signs. She appears clinically dry. She has no focal neurologic deficits. She has generalized weakness. Compartments are soft. EKG without overt ST elevation or depression. Chest x-ray negative for acute cardiopulmonary process. WBC 15.6K nonspecific. H/H 11.3/32.4 without recent values for comparison. Platelets 450K likely reactive. Chemistry without metabolic acidosis. Creatinine 3, increased from normal and July. BUN is elevated at 50. Potassium 2.4 with repletion initiated. AST mildly elevated 51, nonspecific. CPK 1100 in the setting of the patient's prolonged downtime yesterday. High- sensitivity troponin 20.5, nonspecific. Lipase within normal limits. TSH within normal limits. UA suspicious for infection with positive nitrites, leukoesterase, WBCs and 4+ bacteria albeit with epithelial cells present. Covid- 19 PCR negative. Influenza and RSV PCR negative. CT of the head negative for acute abnormality. CT of the abdomen pelvis was performed and demonstrates incidental skeletal lesions of the spine and sacrum with evidence of pathologic subacute appearing sacral shelley fractures. Additional note is made of soft tissue encroachment within the right side sacral neural foramen. Findings are suspicious for multiple myeloma versus unknown metastases. Cholelithiasis is noted with equivocal gallbladder wall thickening however given nonobstructive LFTs unlikely to represent cholecystitis at this time. [facility] who will evaluate the patient for admission. Triage Nursing notes reviewed and agree them. Prior medical records reviewed Vital Signs: reviewed and remarkable for no significant abnormalities Differential diagnosis: Infection, dehydration, metabolic abnormality, hypo/hyperglycemia, electrolyte disturbance, anemia, hypoxia, cardiac sources, intracerebral event, toxicologic, neurologic, as well as other pathologies. ER treatment provided: See below. Diagnostics interpreted by me: ECG: Sinus rhythm with PSVC's, 83 bpm, ST and T wave abnormalities without overt ST elevation, QTC 455, QRS 84 Cardiac Monitoring: An order for continuous cardiac monitoring was placed and demonstrated Sinus rhythm with PSVC's, 83 bpm. Laboratory studies: See below Imaging studies: See below Consultation(s): [facility] will [facility] the patient for [facility]. HPI: The patient is a pleasant 76-year-old woman who presents to the emergency department as a walk-in referred by her PCPs office for worsening renal insufficiency in the setting of being seen today following near syncope yesterday where she lowered her self and sat in the shower but was unable to get up for approximately 5 hours her daughter was contacted and came to check on her. EMS did arrive and given she was able to get up and ambulate she was not transported and encouraged to see her doctor today. She reports soreness in her legs and lower back in the setting of chronic back pain. She reports having mild upper respiratory congestion and sore throat over the past week and admits that she has not been eating or drinking well during this time. She denies any nausea, vomiting or diarrhea. She reports she had some brief brain with urination for a day or so last week but this resolved. ROS: See above HPI for pertinent positives & negatives. A total of 10 systems reviewed and were otherwise negative. VITALS:See Below PHYSICAL EXAMINATION: GENERAL: Awake, alert, fatigued-appearing, in no distress HENT: Normocephalic, atraumatic. Oropharynx with dry mucous membranes and otherwise unremarkable. EYES: Normal conjunctiva. Sclera non-icteric. EOMI. No nystamgus. PEARRL. NECK: Supple. No nuchal rigidity. FROM. No JVD. RESPIRATORY: Clear to auscultation. CARDIAC: Regular rate, normal rhythm. Extremities warm and well perfused. Pulses equal. ABDOMEN: Soft, non-distended. No tenderness to palpation. No rebound or guarding. No masses. RECTAL: Deferred. MUSCULOSKELETAL: Chest examination reveals no tenderness. The back is symmetrical on inspection without obvious abnormality. There is no CVA te nderness to palpation. No joint edema. Compartments are soft. LOWER EXTREMITIES: Calves are equal size bilaterally and non-tender. No edema. No discoloration. NEURO: No focal sensory or motor deficits noted. Generalized weakness. SKIN: No rash or jaundice noted. ED COURSE: Critical Care: I have personally spent greater than 35 minutes of critical care time in the direct management of this patient. This includes bedside care, interpretation of diagnostic studies, and testing, discussion with consultants, patient, and family members, and other required patient management activities. This 35 minutes is in excess of all separately billable procedures. Russell Schmidt MD Past Med/Surg History Medical History Acid reflux Controlled and stable Breast lump PRESENT FOR 3 YRS ...MONITORING , RIGHT - STABLE Feeling anxious ABOUT UPCOMING SURGERY / DO NOT LIKE TO KNOW WHAT IS GOING ON - CANNOT DO TWIGHLIGHT SLEEP "TERRIFIED" History of anesthesia reaction OVER 30 YR AGO ; WOKE UP DURING A SURGERY, AWARE OF SURROUNDINGS AND COULD HEAR THINGS - PT IS NOT SURE WHAT SURGERY HTN (hypertension) Hypothyroidism Scoliosis CAN'T LIE FLAT ON BACK AND GET UP ON OWN - NEED A PILLOW IN THE "SMALL OF MY BACK" Surgical History History of breast biopsy X3 BENIGN History of cataract surgery left 2017 History of colonoscopy with polypectomy RECENT, BENIGN...NO FURTHER COLONOSCOPY FOLLOWS NEEDED History of endoscopy X2 OR 3 History of hysterectomy History of laparoscopy History of shoulder surgery RIGHT History of surgery REMOVAL OF ABDOMINAL TUMOR - BENIGN Family History Other Family history of diabetes mellitus Social History Smoking Status: Never smoker Hx Alcohol Use: Yes Alcohol type: wine Preferred Language: [place] Communication Ability: Effective Table Maker Required: No Beliefs That Will Affect Care: Yazdanism Yazdanism Beliefs: [employer] Current Living Situation: Alone Feels Safe at Home: Yes Assistive Devices: Walker Allergies Allergies Allergy/AdvReac Type Severity Reaction Status Date / Time cat dander Allergy Severe Anaphylaxis Verified 05/15/22 21:31 Iodinated Contrast Media Allergy Severe anaphalaxis Verified 05/15/22 21:31 Home Meds Home Medications Medication Instructions Recorded Confirmed levothyroxine 75 mcg capsule 75 mcg PO QAM 05/10/21 05/15/22 omeprazole 20 mg capsule,delayed 20 mg PO QAM 05/10/21 05/15/22 release lisinopril 20 1 tab PO QAM 08/11/21 05/15/22 mg-hydrochlorothiazide 25 mg tablet [id number]-[id number]-swvuszer 250 1 tab PO Q6H PRN Migraine Headache 05/15/22 05/15/22 mg-250 mg-65 mg tablet (Excedrin Migraine) ibuprofen 200 mg tablet 200 mg PO Q4 PRN as directed 05/15/22 05/15/22 Previous Rx's Medication Instructions Recorded 3-in-1 Commode #1 ea 08/17/21 Wheeled Walker #1 ea 09/07/21 Wheeled Walker #1 ea 09/07/21 Results & Data (ED) Vital Signs Vital Signs - 24 hr 05/15/22 18:01 05/15/22 18:58 05/15/22 20:00 Temperature 36.4 C L Temperature Source Temporal Artery Scan Pulse Rate 89 Pulse Rate [Right] 89 79 Pulse Rhythm [Right] Regular Respiratory Rate 16 Respiratory Effort / Characteristics Non-Labored Spontaneous Respiratory Depth Normal Blood Pressure 102/65 Blood Pressure [Left Arm] 138/66 Blood Pressure Mean 77 Blood Pressure Mean [Left Arm] 90 Pulse Oximetry 97 99 97 Oxygen Delivery Method Room Air Room Air Sepsis Recent Fever Within 48 Hours No Sepsis New/Unexplained Change in Mental Status No Sepsis Action Taken by Nursing No Action Required Laboratory Data Attestation: I reviewed the patient's lab results. Result diagrams: 05/15/22 18:20 05/15/22 22:37 Lab Results 05/15/22 05/15/22 05/15/22 Range/Units 18:20 18:20 18:20 WBC 15.60 H (4.8-10.8) K/ul RBC 3.83 L (3.93-5.22) M/uL Hgb 11.3 L (12.0-16.0) g/dl Hct 32.4 L (34.1-44.9) % MCV 84.6 (80.0-100.0) fL MCH 29.5 (25.0-34.0) pg MCHC 34.9 (32.0-36.0) g/dL RDW Std Deviation 43.2 (36.4-46.3) fL RDW Coeff of Barbra 14.1 (11.5-14.5) % Plt Count 452 H (130-400) K/uL MPV 10.2 (9.4-12.3) fL Immature Gran % (Auto) 0.6 % Neut % (Auto) 69.1 % Lymph % (Auto) 20.3 % Young % (Auto) 6.9 % Eos % (Auto) 2.7 % Baso % (Auto) 0.4 % Reticulocyte % (Auto) (0.5-2.0) % Neut # (Auto) 10.79 H (1.4-6.5) K/uL Lymph # (Auto) 3.16 (1.2-3.4) K/uL Young # (Auto) 1.08 H (0.24-0.82) K/uL Eos # (Auto) 0.42 (0-0.50) K/uL Baso # (Auto) 0.06 (0-0.2) K/uL Reticulocyte # (0.02-0.10) 10^6/uL Immature Gran # (Auto) 0.09 H (0.00-0.02) K/uL Sodium 133 L (136-145) mmol/L Potassium 2.6 L (3.5-5.1) mmol/L Chloride 93 L (98-107) mmol/L Carbon Dioxide 26 (21-32) mmol/L Anion Gap 14 H (3-11) BUN 50 H (6-23) mg/dl Creatinine 3.01 H (0.6-1.2) mg/dl Est Cr Clr Drug Dosing 18.1 ml/min Est GFR ( Amer) 16.7 ml/min Est GFR (Non-Af Amer) 14.4 ml/min BUN/Creatinine Ratio 16.6 (10-20) Glucose 89 (70-99(Fasting)) mg/dl Lactate (0.4-2.0) mmol/L Calcium 9.3 (8.5-10.1) mg/dl Phosphorus 3.5 (2.5-4.9) mg/dl Magnesium 2.4 (1.7-2.4) mg/dl Transferrin (200-360) mg/dl Ferritin (8-388) ng/ml Total Bilirubin 0.6 (0.2-1.0) mg/dl AST 51 H (13-39) U/L ALT 35 (7-52) U/L Alkaline Phosphatase 127 H (34-104) U/L Total Creatine Kinase 1146 H (26-192) U/L Troponin I High Sens 29.5 H (0-14) pg/ml Total Protein 7.4 (6.0-8.3) gm/dl Albumin 3.8 (3.4-5.0) gm/dl Globulin 3.6 (2.5-4.0) gm/dl Albumin/Globulin Ratio 1.1 (0.9-2) Lipase 50 (11-82) U/L Vitamin B12 (180-914) pg/ml Folate (>5.38) ng/ml TSH (0.300-4.500) uIu/ml Urine Color Urine Appearance (Clear) Urine pH (4.5-7.5) Ur Specific Rickreall (1.000-1.030) Urine Protein (Negative) Urine Glucose (UA) (Negative) Urine Ketones (Negative) Urine Blood (Negative) Urine Nitrite (Negative) Urine Bilirubin (Negative) Urine Urobilinogen (Negative) Ur Leukocyte Esterase (Negative) Urine WBC (Auto) (0-5) /hpf Urine RBC (Auto) (0-4) /hpf U Hyaline Cast (Auto) (0-5) /lpf U Epithel Cells (Auto) (0-5) /lpf Urine Bacteria (Auto) (Negative) Urine Yeast SARS-CoV-2 (PCR) (Negative) Influenza Type A (PCR) (Neg) Influenza Type B (PCR) (Neg) RSV (RT-PCR) (Neg) 05/15/22 05/15/22 05/15/22 Range/Units 18:20 18:20 18:20 WBC (4.8-10.8) K/ul RBC (3.93-5.22) M/uL Hgb (12.0-16.0) g/dl Hct (34.1-44.9) % MCV (80.0-100.0) fL MCH (25.0-34.0) pg MCHC (32.0-36.0) g/dL RDW Std Deviation (36.4-46.3) fL RDW Coeff of Barbra (11.5-14.5) % Plt Count (130-400) K/uL MPV (9.4-12.3) fL Immature Gran % (Auto) % Neut % (Auto) % Lymph % (Auto) % Young % (Auto) % Eos % (Auto) % Baso % (Auto) % Reticulocyte % (Auto) 1.8 (0.5-2.0) % Neut # (Auto) (1.4-6.5) K/uL Lymph # (Auto) (1.2-3.4) K/uL Young # (Auto) (0.24-0.82) K/uL Eos # (Auto) (0-0.50) K/uL Baso # (Auto) (0-0.2) K/uL Reticulocyte # 0.07 (0.02-0.10) 10^6/uL Immature Gran # (Auto) (0.00-0.02) K/uL Sodium (136-145) mmol/L Potassium (3.5-5.1) mmol/L Chloride (98-107) mmol/L Carbon Dioxide (21-32) mmol/L Anion Gap (3-11) BUN (6-23) mg/dl Creatinine (0.6-1.2) mg/dl Est Cr Clr Drug Dosing ml/min Est GFR ( Amer) ml/min Est GFR (Non-Af Amer) ml/min BUN/Creatinine Ratio (10-20) Glucose (70-99(Fasting)) mg/dl Lactate (0.4-2.0) mmol/L Calcium (8.5-10.1) mg/dl Phosphorus (2.5-4.9) mg/dl Magnesium (1.7-2.4) mg/dl Transferrin (200-360) mg/dl Ferritin (8-388) ng/ml Total Bilirubin (0.2-1.0) mg/dl AST (13-39) U/L ALT (7-52) U/L Alkaline Phosphatase (34-104) U/L Total Creatine Kinase (26-192) U/L Troponin I High Sens (0-14) pg/ml Total Protein (6.0-8.3) gm/dl Albumin (3.4-5.0) gm/dl Globulin (2.5-4.0) gm/dl Albumin/Globulin Ratio (0.9-2) Lipase (11-82) U/L Vitamin B12 383 (180-914) pg/ml Folate 10.22 (>5.38) ng/ml TSH 1.433 (0.300-4.500) uIu/ml Urine Color Urine Appearance (Clear) Urine pH (4.5-7.5) Ur Specific Rickreall (1.000-1.030) Urine Protein (Negative) Urine Glucose (UA) (Negative) Urine Ketones (Negative) Urine Blood (Negative) Urine Nitrite (Negative) Urine Bilirubin (Negative) Urine Urobilinogen (Negative) Ur Leukocyte Esterase (Negative) Urine WBC (Auto) (0-5) /hpf Urine RBC (Auto) (0-4) /hpf U Hyaline Cast (Auto) (0-5) /lpf U Epithel Cells (Auto) (0-5) /lpf Urine Bacteria (Auto) (Negative) Urine Yeast SARS-CoV-2 (PCR) (Negative) Influenza Type A (PCR) (Neg) Influenza Type B (PCR) (Neg) RSV (RT-PCR) (Neg) 05/15/22 05/15/22 05/15/22 Range/Units 19:40 22:37 22:37 WBC (4.8-10.8) K/ul RBC (3.93-5.22) M/uL Hgb (12.0-16.0) g/dl Hct (34.1-44.9) % MCV (80.0-100.0) fL MCH (25.0-34.0) pg MCHC (32.0-36.0) g/dL RDW Std Deviation (36.4-46.3) fL RDW Coeff of Barbra (11.5-14.5) % Plt Count (130-400) K/uL MPV (9.4-12.3) fL Immature Gran % (Auto) % Neut % (Auto) % Lymph % (Auto) % Young % (Auto) % Eos % (Auto) % Baso % (Auto) % Reticulocyte % (Auto) (0.5-2.0) % Neut # (Auto) (1.4-6.5) K/uL Lymph # (Auto) (1.2-3.4) K/uL Young # (Auto) (0.24-0.82) K/uL Eos # (Auto) (0-0.50) K/uL Baso # (Auto) (0-0.2) K/uL Reticulocyte # (0.02-0.10) 10^6/uL Immature Gran # (Auto) (0.00-0.02) K/uL Sodium 134 L (136-145) mmol/L Potassium 2.4 L* (3.5-5.1) mmol/L Chloride 97 L (98-107) mmol/L Carbon Dioxide 26 (21-32) mmol/L Anion Gap 11 (3-11) BUN 47 H (6-23) mg/dl Creatinine 2.51 H D (0.6-1.2) mg/dl Est Cr Clr Drug Dosing 21.7 ml/min Est GFR ( Amer) 20.8 ml/min Est GFR (Non-Af Amer) 18.0 ml/min BUN/Creatinine Ratio 18.7 (10-20) Glucose 89 (70-99(Fasting)) mg/dl Lactate 0.9 (0.4-2.0) mmol/L Calcium 8.8 (8.5-10.1) mg/dl Phosphorus (2.5-4.9) mg/dl Magnesium (1.7-2.4) mg/dl Transferrin 184 L (200-360) mg/dl Ferritin 186.9 (8-388) ng/ml Total Bilirubin (0.2-1.0) mg/dl AST (13-39) U/L ALT (7-52) U/L Alkaline Phosphatase (34-104) U/L Total Creatine Kinase (26-192) U/L Troponin I High Sens 22.4 H (0-14) pg/ml Total Protein (6.0-8.3) gm/dl Albumin (3.4-5.0) gm/dl Globulin (2.5-4.0) gm/dl Albumin/Globulin Ratio (0.9-2) Lipase (11-82) U/L Vitamin B12 (180-914) pg/ml Folate (>5.38) ng/ml TSH (0.300-4.500) uIu/ml Urine Color Yellow Urine Appearance Cloudy A (Clear) Urine pH 5.5 (4.5-7.5) Ur Specific Rickreall 1.010 (1.000-1.030) Urine Protein 1+ H (Negative) Urine Glucose (UA) Negative (Negative) Urine Ketones Negative (Negative) Urine Blood 2+ H (Negative) Urine Nitrite Positive A (Negative) Urine Bilirubin Negative (Negative) Urine Urobilinogen Negative (Negative) Ur Leukocyte Esterase 3+ H (Negative) Urine WBC (Auto) >30 H (0-5) /hpf Urine RBC (Auto) 0-4 (0-4) /hpf U Hyaline Cast (Auto) 10-30 H (0-5) /lpf U Epithel Cells (Auto) >30 H (0-5) /lpf Urine Bacteria (Auto) 4+ H (Negative) Urine Yeast Not Reportable SARS-CoV-2 (PCR) (Negative) Influenza Type A (PCR) (Neg) Influenza Type B (PCR) (Neg) RSV (RT-PCR) (Neg) 05/15/22 Range/Units Unknown WBC (4.8-10.8) K/ul RBC (3.93-5.22) M/uL Hgb (12.0-16.0) g/dl Hct (34.1-44.9) % MCV (80.0-100.0) fL MCH (25.0-34.0) pg MCHC (32.0-36.0) g/dL RDW Std Deviation (36.4-46.3) fL RDW Coeff of Barbra (11.5-14.5) % Plt Count (130-400) K/uL MPV (9.4-12.3) fL Immature Gran % (Auto) % Neut % (Auto) % Lymph % (Auto) % Young % (Auto) % Eos % (Auto) % Baso % (Auto) % Reticulocyte % (Auto) (0.5-2.0) % Neut # (Auto) (1.4-6.5) K/uL Lymph # (Auto) (1.2-3.4) K/uL Young # (Auto) (0.24-0.82) K/uL Eos # (Auto) (0-0.50) K/uL Baso # (Auto) (0-0.2) K/uL Reticulocyte # (0.02-0.10) 10^6/uL Immature Gran # (Auto) (0.00-0.02) K/uL Sodium (136-145) mmol/L Potassium (3.5-5.1) mmol/L Chloride (98-107) mmol/L Carbon Dioxide (21-32) mmol/L Anion Gap (3-11) BUN (6-23) mg/dl Creatinine (0.6-1.2) mg/dl Est Cr Clr Drug Dosing ml/min Est GFR ( Amer) ml/min Est GFR (Non-Af Amer) ml/min BUN/Creatinine Ratio (10-20) Glucose (70-99(Fasting)) mg/dl Lactate (0.4-2.0) mmol/L Calcium (8.5-10.1) mg/dl Phosphorus (2.5-4.9) mg/dl Magnesium (1.7-2.4) mg/dl Transferrin (200-360) mg/dl Ferritin (8-388) ng/ml Total Bilirubin (0.2-1.0) mg/dl AST (13-39) U/L ALT (7-52) U/L Alkaline Phosphatase (34-104) U/L Total Creatine Kinase (26-192) U/L Troponin I High Sens (0-14) pg/ml Total Protein (6.0-8.3) gm/dl Albumin (3.4-5.0) gm/dl Globulin (2.5-4.0) gm/dl Albumin/Globulin Ratio (0.9-2) Lipase (11-82) U/L Vitamin B12 (180-914) pg/ml Folate (>5.38) ng/ml TSH (0.300-4.500) uIu/ml Urine Color Urine Appearance (Clear) Urine pH (4.5-7.5) Ur Specific Rickreall (1.000-1.030) Urine Protein (Negative) Urine Glucose (UA) (Negative) Urine Ketones (Negative) Urine Blood (Negative) Urine Nitrite (Negative) Urine Bilirubin (Negative) Urine Urobilinogen (Negative) Ur Leukocyte Esterase (Negative) Urine WBC (Auto) (0-5) /hpf Urine RBC (Auto) (0-4) /hpf U Hyaline Cast (Auto) (0-5) /lpf U Epithel Cells (Auto) (0-5) /lpf Urine Bacteria (Auto) (Negative) Urine Yeast SARS-CoV-2 (PCR) NEGATIVE (Negative) Influenza Type A (PCR) Negative (Neg) Influenza Type B (PCR) Negative (Neg) RSV (RT-PCR) Negative (Neg) Administered Medications Discontinued Medications Sodium Chloride (Nss) 500 mls @ 999 mls/hr IV .Q31M ONE Stop: 05/15/22 19:48 Last Infusion: 05/15/22 20:33 Dose: 0 mls/hr Documented By: Admin: 05/15/22 20:02 Dose: 999 mls/hr Documented By: HALEY Sodium Chloride (Nss 1000ml) 1,000 mls @ 125 mls/hr IV .Q8H ALAINA Stop: 06/14/22 19:29 Last Admin: 05/15/22 20:01 Dose: 125 mls/hr Documented By: HALEY Potassium Chloride (K Leo / Wtr) 10 meq in 100 mls @ 100 mls/hr IV Q1H ALAINA; Protocol Stop: 05/15/22 21:29 Last Infusion: 05/16/22 00:05 Dose: 0 mls/hr Documented By: Admin: 05/15/22 22:42 Dose: 50,202 mls/hr Documented By: Infusion: 05/15/22 21:44 Dose: 0 mls/hr Documented By: Admin: 05/15/22 20:03 Dose: 100 mls/hr Documented By: HALEY Acetaminophen (Ofirmev) 1,000 mg in 100 mls @ 400 mls/hr IV NOW STA Stop: 05/15/22 19:38 Last Infusion: 05/15/22 20:21 Dose: 0 mls/hr Documented By: Admin: 05/15/22 20:03 Dose: 400 mls/hr Documented By: HALEY Ceftriaxone Sodium (Rocephin) 2,000 mg in 70 mls @ 140 mls/hr IV NOW STA Stop: 05/15/22 21:13 Last Infusion: 05/16/22 00:05 Dose: 0 mls/hr Documented By: Admin: 05/15/22 22:43 Dose: 140 mls/hr Documented By: ALBA Potassium Chloride (Potassium Chloride Pwd 20 Meq Pack) 40 meq PO NOW STA Stop: 05/15/22 21:09 Last Admin: 05/15/22 22:43 Dose: 40 meq Documented By: ALBA Potassium Chloride (Potassium Chloride Pwd 20 Meq Pack) 40 meq PO ONE ONE Stop: 05/15/22 23:31 Last Admin: 05/15/22 23:29 Dose: 40 meq Documented By: ALBA Imaging Data Radiologist's Impression: Chest X-Ray 05/15/22 19:18 XR chest 1V portable HISTORY: 76 years-old Female near syncope acutely altered mental status COMPARISON: 08/17/2021 TECHNIQUE: AP view of the chest FINDINGS: Cardiac silhouette is enlarged. No pneumothorax, pleural effusion, airspace consolidation or overt pulmonary edema. Degenerative changes of the shoulders and spine. IMPRESSION: Cardiomegaly without acute process. ACT 112: Negative or not required by law. The above report was generated using voice recognition software. It may contain grammatical, syntax or spelling errors. Electronically signed by: Bryan Lyons M.D. 05/15/2022 7:37 PM Abdomen/Pelvis CT 05/15/22 19:[address] WITHOUT CONTRAST CT DOSE: 1760.33 mGy.cm HISTORY: Acute generalized abdominal pain with acute renal failure acute RF, near syncope, fall TECHNIQUE: Multiaxial CT images of the abdomen and pelvis were performed without contrast. A dose lowering technique was utilized adhering to the principles of ALARA. COMPARISON STUDY: Pelvis and hip radiographs 10/19/2021 FINDINGS: Subsegmental bibasilar atelectasis versus scarring. There is no pneumatosis or pneumoperitoneum. Cardiomegaly. The unenhanced spleen measures the upper limits of normal in size. Mild to moderate splenomegaly. Thickening of the adrenal glands suggestive of hyperplasia. Cholelithiasis with equivocal gallbladder wall thickening. No biliary ductal dilation. Unremarkable gallbladder. The unenhanced liver is unremarkable. Cortical thinning of the kidneys with bilateral renal sinus cysts. No renal or ureteral calculi or hydronephrosis identified. Partially decompressed urinary bladder. There is a locule of air within the nondependent urinary bladder lumen. Hysterectomy. Pelvic floor relaxation with cystocele and rectocele. Atherosclerosis of the aorta. No lymphadenopathy identified. Moderate sized hiatal hernia. Duodenal diverticulum. Colonic diverticulosis. The appendix is not visualized. No ascites or mesenteric inflammation. Degenerative changes of the shoulders and spine. Multilevel central canal or neural foraminal narrowing. There are numerous osteolytic skeletal lesions, most pronounced within the sacrum and spine. The largest lesion involves the central to right aspect of the mid sacrum measuring up to approximately 6 cm. Subacute bilateral sacral alar fractures with slight displacement on the right. The large right- sided sacral lesion demonstrates invasion with narrowing involving the right S2 and S3 neural foramen there is mild asymmetric enlargement right piriformis muscle. Lytic lesion involving the T8 vertebral body demonstrates posterior cortical breakthrough with possible anterior epidural extension. Lumbar dextroscoliosis. Left hip total joint arthroplasty. IMPRESSION: 1. Numerous osteolytic skeletal lesions, most pronounced around the spine and sacrum resulting in pathologic subacute appearing sacral alar fractures. There is soft tissue encroachment with narrowing of the right-sided sacral neural foramen. Posterior endplate erosion at T8 with possible anterior fissural extension of disease. Multiple myeloma versus metastasis from unknown primary are the differential considerations. Oncologic workup is needed. 2. Cholelithiasis with equivocal gallbladder wall thickening. Correlation with right upper quadrant abdominal ultrasound recommended. 3. No bowel obstruction or bowel wall thickening. 4. Moderate sized hiatal hernia. 5. Colonic diverticulosis. 6. Additional findings as above. ACT 112: Negative or not required by law. The above report was generated using voice recognition software. It may contain grammatical, syntax or spelling errors. Electronically signed by: Bryan Lyons M.D. 05/15/2022 8:[address] 05/15/22 19:24 CT head/brain wo con CLINICAL HISTORY: 76 years-old Female with near syncope. Acutely altered mental status TECHNIQUE: Multiple axial CT images of the head were obtained without contrast. A dose lowering technique was utilized adhering to the principles of ALARA. COMPARISON: None. FINDINGS: No acute intracranial hemorrhage, midline shift, intracranial mass, hydrocephalus, territorial ischemia or abnormal extra-axial collection. Involutional changes with white matter hypodensities suggestive of chronic microvascular ischemic disease. Cerebral vascular calcifications. The calvarium is intact. Mastoid air cells are clear. Mild loss with partial opacification of the right maxillary sinus. Prior left-sided lens repair. IMPRESSION: No acute intracranial abnormality. ACT 112: Negative or not required by law. The above report was generated using voice recognition software. It may contain grammatical, syntax or spelling errors. Electronically signed by: Bryan Lyons M.D. 05/15/2022 8:02 PM Discharge Plan Visit Data Chief Complaint: Referred by Doctor Stated Complaint: REFERRED BY DOC,KIDNEY TREATMENT,DIZZYNESS ED Provider: Russell Schmidt Discharge Problem: Acute renal failure, Hypokalemia, Rhabdomyolysis, Elevated troponin, Near syncope, Abnormal computed tomography of abdomen and pelvis, Acute UTI Patient Disposition: Admitted As Inpatient Forms Stand Alone Forms: [facility] Prescriptions Prescriptions: No Action (DME) Wheeled Walker [facility] See Rx Instructions .MEDSUPPLY Qty: 1 0RF Rx Instructions: As directed (DME) [facility] Walker [facility] See Rx Instructions .MEDSUPPLY Qty: 1 0RF Rx Instructions: As directed omeprazole 20 mg capsule,delayed release(DR/EC) 20 mg PO QAM levothyroxine 75 mcg capsule 75 mcg PO QAM (DME) 3-in-1 [facility] See Rx Instructions .MEDSUPPLY Qty: 1 0RF Rx Instructions: As directed ibuprofen 200 mg Tablet 200 mg PO Q4 PRN (Reason: as directed) Excedrin Migraine 250-250-65 mg Tablet 1 tab PO Q6H PRN (Reason: Migraine Headache) lisinopril-hydrochlorothiazide 20-25 mg Tablet 1 tab PO QAM Referrals Referrals: Alesha Reddy, [Primary Care Provider] -
[2022-05-16] MEDS: LORazepam 0.5 MG TAB PO PRN ×2 (02:00→21:14)
[2022-05-16] MEDS ORDERED: POTASSIUM CHLORIDE PWD 20 MEQ PACK PO STA (02:39)
[2022-05-16] MEDS: NSS + 20MEQ KCL 20 MEQ/1,000 ML BAG IV SCH ×3 (03:41→18:02)
[2022-05-16 05:03] LABS: Appearance Urine Clear (Clear); Bacteria Urine Automated Negative (Negative); Bilirubin Urine Negative (Negative); Blood Urine 1+ (Negative); Cast Urine Automated 0 /lpf (0-5); Color Urine Yellow; Epithelial Cell Urine Auto 0-5 /lpf (0-5); Glucose Urine UA Negative (Negative); Ketones Urine Negative (Negative); Leukocyte Esterase Urine 2+ (Negative); Nitrite Urine Negative (Negative); Protein Urine Trace (Negative); RBC Urine Automated 0-4 /hpf (0-4); Specific Gravity Urine 1.008 (1.000-1.030); Urobilinogen Urine Negative (Negative); WBC Urine Automated >30 /hpf (0-5); pH Urine 5.5 (4.5-7.5)
[2022-05-16] MEDS: LEVOTHYROXINE SODIUM 75 MCG TABLET PO SCH (06:04)
[2022-05-16 07:55] LABS: Basophils # (auto) 0.06 K/uL (0-0.2); Basophils % (auto) 0.6 %; Eosinophils # (auto) 0.31 K/uL (0-0.50); Eosinophils % (auto) 3.2 %; Hematocrit (blood only) 28.4 % (34.1-44.9); Hemoglobin 9.8 g/dl (12.0-16.0); Immature Granulocytes # (auto) 0.06 K/uL (0.00-0.02); Immature Granulocytes % (auto) 0.6 %; Lymphocytes # (auto) 1.59 K/uL (1.2-3.4); Lymphocytes % (auto) 16.5 %; Mean Corpuscular Hemoglobin 29.1 pg (25.0-34.0); Mean Corpuscular Hgb Conc 34.5 g/dL (32.0-36.0); Mean Corpuscular Volume 84.3 fL (80.0-100.0); Mean Platelet Volume 10.3 fL (9.4-12.3); Monocytes # (auto) 0.65 K/uL (0.24-0.82); Monocytes % (auto) 6.8 %; Neutrophils # (auto) 6.94 K/uL (1.4-6.5); Neutrophils % (auto) 72.3 %; Platelet Count 374 K/uL (130-400); RDW Standard Deviation 43.1 fL (36.4-46.3); Red Blood Count 3.37 M/uL (3.93-5.22); White Blood Count 9.61 K/ul (4.8-10.8)
[2022-05-16 08:42] LABS: Potassium 3.1 mmol/L (3.5-5.1)
[2022-05-16 08:43] LABS: BUN Creatinine Ratio 23.8 (10-20); Calcium 8.9 mg/dl (8.5-10.1); Creatinine Clr Calc Pharmacy 33.4 ml/min; Est GFR (African American) 35.9 ml/min
[2022-05-16] MEDS: PANTOprazole 40 MG TAB PO SCH (08:48)
--- NOTE | 2022-05-16 09:37 | History & Physical Report ---
Date of Service May 15, 2022 (late entry) Assessment & Plan (1) Generalized weakness: Plan: Multifactorial: Complicated UTI, no sepsis for now Multifactorial ARF (hypovolemia given low BP, rhabdomyolysis, NSAID medications, lisinopril, HCTZ rule out multiple myeloma given associated skeletal lesions, new onset anemia) Skeletal lesions rule out primary malignancy, multiple myeloma Troponin elevation secondary to illness in the setting of kidney dysfunction, rule out cardiac dysfunction given hypotension Hypokalemia secondary to decreased p.o. intake and home diuretic Rx hypothyroidism, euthyroid as of today's TSH hx PUD, stable on regimen Positive Hemoccult, hx diverticulosis, hemorrhoids (2020 colonoscopy) Right breast nodule, benign as per recent outpatient mammogram last week. Medical telemetry Urine CS, Ceftriaxone Monitor creatinine, CPK response to IVF Hold NSAIDs, lisinopril, home diuretics for now until creatinine back to baseline Preliminary diagnostic work-up for multiple myeloma Inpatient Oncology consultation as per patient/family request Re: Skeletal lesions, recommendations for malignancy work-up Replace potassium Follow troponin TTE Re: Hypotension, troponin elevation Anemia work-up, transfuse PRBC if hemoglobin less than 7 and or for symptomatic anemia Patient hesitant to receive transfusions for now. DVT phylaxis. SCDs Re: Occult GI bleed Full code Patient daughter requesting updates from providers. Ms. Agata Myers, contact #[phone]. Text document was generated using [employer] voice recognition software. It may contain grammatical or spelling errors. Kindly contact undersigned for clarification of any documentation item in question. Admission and Anticipated Discharge Date Admission Date: May 15, 2022 History of Present Illness Chief Complaint: Weakness, abnormal blood work Primary Care Provider: Alesha Reddy, History obtained from patient, family, and records. Medical history significant for hypertension, hypothyroidism, PUD, diverticulosis, hemorrhoids, right breast nodule. Last confinement August 2021 under Orthopedics service for elective left hip replacement surgery. Patient noted left hip pain complaints last month. No lower extremity radiation. Symptoms attributed to arthritis, possible piriformis syndrome by PCP. Outpatient chiropractor referral made. Chiropractor concurred with PCP diagnosis as per patient Patient prescribed ibuprofen course which improved pain. Patient not feeling well the last few days. Yesterday morning, patient was in the shower when she felt dizzy, lightheaded and weak. She had to lay down in the shower. Patient unable to get up. Was on the shower floor for about 6 hours until patient found by daughter. Patient denies chest pain, SOB, headache, abdominal pain, black/bloody stools, hematuria symptoms. Transient dysuria symptoms a few weeks ago relieved by [id number] topical Rx. Laryngitis from last week which patient gets from time to time due to her work at a local [employer]. No unusual weight loss. EMS called to patient's home. EMS helped patient get up from the shower. ED evaluation not recommended. Patient advised to follow-up with PCP today. Patient seen at PCP's office today. SBP noted to be 80s. PVCs noted on EKG. Abnormal labs noted outpatient. Hemoglobin 11.3, WBC 15.9 Serum creatinine 2.9, potassium 2.7, anion gap 17, ALT 42, alk phos 166 Patient directed to the ER for evaluation. Lowest SBP of 90s noted at the ER. IV ceftriaxone administered at the ER possible UTI. 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 [employer] Allergies Allergy/AdvReac Type Severity Reaction Status Date / Time cat dander Allergy Severe Anaphylaxis Verified 05/15/22 21:31 Iodinated Contrast Media Allergy Severe anaphalaxis Verified 05/15/22 21:31 Home Medications Medication Instructions Recorded Confirmed Type levothyroxine 75 mcg capsule 75 mcg PO QAM 05/10/21 05/15/22 History omeprazole 20 mg capsule,delayed 20 mg PO QAM 05/10/21 05/15/22 History release lisinopril 20 1 tab PO QAM 08/11/21 05/15/22 History mg-hydrochlorothiazide 25 mg tablet 3-in-1 Commode #1 ea 08/17/21 05/15/22 Rx Wheeled Walker #1 ea 09/07/21 05/15/22 Rx Wheeled Walker #1 ea 09/07/21 05/15/22 Rx [id number] 250 1 tab PO Q6H PRN Migraine Headache 05/15/22 05/15/22 History mg-250 mg-65 mg tablet (Excedrin Migraine) ibuprofen 200 mg tablet 200 mg PO Q4 PRN as directed 05/15/22 05/15/22 History Past Med/Surg History Medical History Acid reflux Controlled and stable Breast lump PRESENT FOR 3 YRS ...MONITORING , RIGHT - STABLE Feeling anxious ABOUT UPCOMING SURGERY / DO NOT LIKE TO KNOW WHAT IS GOING ON - CANNOT DO TWIGHLIGHT SLEEP "TERRIFIED" History of anesthesia reaction OVER 30 YR AGO ; WOKE UP DURING A SURGERY, AWARE OF SURROUNDINGS AND COULD HEAR THINGS - PT IS NOT SURE WHAT SURGERY HTN (hypertension) Hypothyroidism Scoliosis CAN'T LIE FLAT ON BACK AND GET UP ON OWN - NEED A PILLOW IN THE "SMALL OF MY BACK" Surgical History History of breast biopsy X3 BENIGN History of cataract surgery left 2017 History of colonoscopy with polypectomy RECENT, BENIGN...NO FURTHER COLONOSCOPY FOLLOWS NEEDED History of endoscopy X2 OR 3 History of hysterectomy History of laparoscopy History of shoulder surgery RIGHT History of surgery REMOVAL OF ABDOMINAL TUMOR - BENIGN Family History Other Family history of diabetes mellitus Social History Smoking Status: Never smoker Hx Alcohol Use: No Hx Substance Use: No Preferred Language: Citizen Of [place] Communication Ability: Effective Product Development Technician Required: No Beliefs That Will Affect Care: None marital status: Single Current Living Situation: Alone Other Information That Helps Us Care for You: No Feels Safe at Home: Yes Safety Concerns: Feels Safe At This Time Assistive Devices: Cane and Walker Review of Systems Review of Systems: As per HPI, all other systems reviewed and negative Physical Exam Physical Exam: GENERAL: Slightly anxious, obese, no respiratory distress SKIN: Normal color, warm HEENT: [place] palpebral conjunctivae, no ptosis, dry buccal mucosa NECK : Supple, short neck, no tenderness CHEST : CTA, no tenderness HEART : RRR, apical systolic murmur ABDOMEN: Some distention, nontender RECTAL : Intact sphincter, brown stool (FOBT positive) BACK : Low back tenderness, negative SLR EXTREMITIES : Minimal LE swelling, no LE tenderness, no other conspicuous deformities noted NEUROLOGIC : Coherent, no facial asymmetry, no other gross focality Results & Data Results & Data ([facility]) Vital Signs (Past 12 Hours) Vital Signs Temp Pulse Pulse Resp BP Pulse Ox O2 Del Method 05/16/22 02:00 76 05/16/22 02:01 36.6 C 73 16 95/54 L 97 Room Air Laboratory Results Vital Signs - 24 hr 05/15/22 18:01 05/15/22 18:58 05/15/22 20:00 Temperature 36.4 C L Temperature Source Temporal Artery Scan Pulse Rate 89 Pulse Rate [Right] 89 79 Pulse Rhythm [Right] Regular Respiratory Rate 16 Respiratory Effort / Characteristics Non-Labored Spontaneous Respiratory Depth Normal Blood Pressure 102/65 Blood Pressure [Left Arm] 138/66 Blood Pressure Mean 77 Blood Pressure Mean [Left Arm] 90 Pulse Oximetry 97 99 97 Oxygen Delivery Method Room Air Room Air Sepsis Recent Fever Within 48 Hours No Sepsis New/Unexplained Change in Mental Status No G Sepsis Action Taken by Nursing No Action Required Laboratory Data Attestation: I reviewed the patient's lab results. Result diagrams: 05/15/22 18:20 05/15/22 22:37 Lab Results 05/15/22 05/15/22 05/15/22 Range/Units 18:20 18:20 18:20 WBC 15.60 H (4.8-10.8) K/ul RBC 3.83 L (3.93-5.22) M/uL Hgb 11.3 L (12.0-16.0) g/dl Hct 32.4 L (34.1-44.9) % MCV 84.6 D (80.0-100.0) fL MCH 29.5 (25.0-34.0) pg MCHC 34.9 (32.0-36.0) g/dL RDW Std Deviation 43.2 (36.4-46.3) fL RDW Coeff of Barbra 14.1 (11.5-14.5) % Plt Count 452 H (130-400) K/uL MPV 10.2 (9.4-12.3) fL Immature Gran % (Auto) 0.6 % Neut % (Auto) 69.1 % Lymph % (Auto) 20.3 % Cache % (Auto) 6.9 % Eos % (Auto) 2.7 % Baso % (Auto) 0.4 % Reticulocyte % (Auto) (0.5-2.0) % Neut # (Auto) 10.79 H (1.4-6.5) K/uL Lymph # (Auto) 3.16 (1.2-3.4) K/uL Cache # (Auto) 1.08 H (0.24-0.82) K/uL Eos # (Auto) 0.42 (0-0.50) K/uL Baso # (Auto) 0.06 (0-0.2) K/uL Reticulocyte # (0.02-0.10) 10^6/uL D Immature Gran # (Auto) 0.09 H (0.00-0.02) K/uL Sodium 133 L (136-145) mmol/L Potassium 2.6 L (3.5-5.1) mmol/L Chloride 93 L (98-107) mmol/L Carbon Dioxide 26 (21-32) mmol/L Anion Gap 14 H (3-11) BUN 50 H (6-23) mg/dl Creatinine 3.01 H (0.6-1.2) mg/dl Est Cr Clr Drug Dosing 18.1 ml/min Est GFR ( Amer) 16.7 ml/min Est GFR (Non-Af Amer) 14.4 ml/min BUN/Creatinine Ratio 16.6 (10-20) Glucose 89 (70-99(Fasting)) mg/dl Lactate (0.4-2.0) mmol/L Calcium 9.3 (8.5-10.1) mg/dl Phosphorus 3.5 (2.5-4.9) mg/dl Magnesium 2.4 (1.7-2.4) mg/dl Transferrin (200-360) mg/dl Ferritin (8-388) ng/ml Total Bilirubin 0.6 (0.2-1.0) mg/dl AST 51 H (13-39) U/L ALT 35 (7-52) U/L Alkaline Phosphatase 127 H (34-104) U/L Total Creatine Kinase 1146 H (26-192) U/L Troponin I High Sens 29.5 H (0-14) pg/ml Total Protein 7.4 (6.0-8.3) gm/dl Albumin 3.8 (3.4-5.0) gm/dl Globulin 3.6 (2.5-4.0) gm/dl Albumin/Globulin Ratio 1.1 (0.9-2) Lipase 50 (11-82) U/L Vitamin B12 (180-914) pg/ml Folate (>5.38) ng/ml TSH (0.300-4.500) uIu/ml Urine Color Urine Appearance (Clear) Urine pH (4.5-7.5) Ur Specific [place] (1.000-1.030) Urine Protein (Negative) Urine Glucose (UA) (Negative) Urine Ketones B (Negative) Urine Blood (Negative) Urine Nitrite (Negative) Urine Bilirubin (Negative) Urine Urobilinogen (Negative) Ur Leukocyte Esterase (Negative) Urine WBC (Auto) (0-5) /hpf Urine RBC (Auto) (0-4) /hpf U Hyaline Cast (Auto) (0-5) /lpf U Epithel Cells (Auto) (0-5) /lpf Urine Bacteria (Auto) (Negative) Urine Yeast SARS-CoV-2 (PCR) (Negative) Influenza Type A (PCR) (Neg) Influenza Type B (PCR) (Neg) RSV (RT-PCR) (Neg) 05/15/22 05/15/22 05/15/22 Range/Units 18:20 18:20 18:20 WBC (4.8-10.8) K/ul RBC (3.93-5.22) M/uL Hgb (12.0-16.0) g/dl Hct (34.1-44.9) % MCV (80.0-100.0) fL MCH (25.0-34.0) pg MCHC (32.0-36.0) g/dL RDW Std Deviation (36.4-46.3) fL RDW Coeff of Barbra (11.5-14.5) % Plt Count (130-400) K/uL MPV (9.4-12.3) fL Immature Gran % (Auto) % Neut % (Auto) % Lymph % (Auto) % Cache % (Auto) % Eos % (Auto) % Baso % (Auto) % Reticulocyte % (Auto) 1.8 (0.5-2.0) % Neut # (Auto) (1.4-6.5) K/uL Lymph # (Auto) (1.2-3.4) K/uL Cache # (Auto) (0.24-0.82) K/uL Eos # (Auto) (0-0.50) K/uL Baso # (Auto) (0-0.2) K/uL Reticulocyte # 0.07 (0.02-0.10) 10^6/uL Immature Gran # (Auto) (0.00-0.02) K/uL Sodium (136-145) mmol/L Potassium (3.5-5.1) mmol/L Chloride (98-107) mmol/L Carbon Dioxide (21-32) mmol/L Anion Gap (3-11) BUN (6-23) mg/dl Creatinine (0.6-1.2) mg/dl Est Cr Clr Drug Dosing ml/min Est GFR ( Amer) ml/min Est GFR (Non-Af Amer) ml/min BUN/Creatinine Ratio (10-20) Glucose (70-99(Fasting)) mg/dl Lactate (0.4-2.0) mmol/L Calcium (8.5-10.1) mg/dl Phosphorus (2.5-4.9) mg/dl Magnesium (1.7-2.4) mg/dl Transferrin (200-360) mg/dl Ferritin (8-388) ng/ml Total Bilirubin (0.2-1.0) mg/dl AST (13-39) U/L ALT (7-52) U/L Alkaline Phosphatase (34-104) U/L Total Creatine Kinase (26-192) U/L Troponin I High Sens (0-14) pg/ml Total Protein (6.0-8.3) gm/dl Albumin (3.4-5.0) gm/dl GlobulinB (2.5-4.0) gm/dl Albumin/Globulin Ratio (0.9-2) Lipase (11-82) U/L Vitamin B12 383 (180-914) pg/ml Folate 10.22 (>5.38) ng/ml TSH 1.433 (0.300-4.500) uIu/ml Urine Color Urine Appearance (Clear) Urine pH (4.5-7.5) Ur Specific [place] (1.000-1.030) Urine Protein (Negative) Urine Glucose (UA) (Negative) Urine Ketones (Negative) Urine Blood (Negative) Urine Nitrite (Negative) Urine Bilirubin (Negative) Urine Urobilinogen (Negative) Ur Leukocyte Esterase (Negative) Urine WBC (Auto) (0-5) /hpf Urine RBC (Auto) (0-4) /hpf U Hyaline Cast (Auto) (0-5) /lpf U Epithel Cells (Auto) (0-5) /lpf Urine Bacteria (Auto) (Negative) Urine Yeast SARS-CoV-2 (PCR) (Negative) Influenza Type A (PCR) (Neg) Influenza Type B (PCR) (Neg) RSV (RT-PCR) (Neg) 05/15/22 05/15/22 05/15/22 Range/Units 19:40 22:37 22:37 WBC (4.8-10.8) K/ul RBC (3.93-5.22) M/uL Hgb (12.0-16.0) g/dl Hct (34.1-44.9) % MCV (80.0-100.0) fL MCH (25.0-34.0) pg MCHC (32.0-36.0) g/dL RDW Std Deviation (36.4-46.3) fL RDW Coeff of Barbra (11.5-14.5) % Plt Count (130-400) K/uL MPV (9.4-12.3) fL Immature Gran % (Auto) % Neut % (Auto) % Lymph % (Auto) % Cache % (Auto) % Eos % (Auto) % Baso % (Auto) % Reticulocyte % (Auto) (0.5-2.0) % Neut # (Auto) (1.4-6.5) K/uL Lymph # (Auto) (1.2-3.4) K/uL Cache # (Auto) (0.24-0.82) K/uL Eos # (Auto) (0-0.50) K/uL Baso # (Auto) (0-0.2) K/uL Reticulocyte # (0.02-0.10) 10^6/uL Immature Gran # (Auto) (0.00-0.02) K/uL Sodium 134 L (136-145) mmol/L Potassium 2.4 L* (3.5-5.1) mmol/L Chloride 97 L (98-107) mmol/L Carbon Dioxide 26 (21-32) mmol/L Anion Gap 11 (3-11) BUN 47 H (6-23) mg/dl Creatinine 2.51 H D (0.6-1.2) mg/dl Est Cr Clr Drug Dosing 21.7 ml/min Est GFR ( Amer) 20.8 ml/min Est GFR (Non-Af Amer) 18.0 ml/min BUN/Creatinine Ratio 18.7 (10-20) Glucose 89 (70-99(Fasting)) mg/dl Lactate 0.9 (0.4-2.0) mmol/L Calcium 8.8 (8.5-10.1) mg/dl Phosphorus (2.5-4.9) mg/dl Magnesium (1.7-2.4) mg/dl Transferrin 184 L (200-360) mg/dl Ferritin 186.9 (8-388) ng/ml Total Bilirubin (0.2-1.0) mg/dl AST (13-39) U/L ALT (7-52) U/L Alkaline Phosphatase (34-104) U/L Total Creatine Kinase (26-192) U/L Troponin I High Sens 22.4 H (0-14) pg/ml Total Protein (6.0-8.3) gm/dl Albumin (3.4-5.0) gm/dl Globulin (2.5-4.0) gm/dl Albumin/Globulin Ratio (0.9-2) Lipase (11-82) U/L Vitamin B12 (180-914) pg/ml Folate (>5.38) ng/ml TSH (0.300-4.500) uIu/ml Urine Color Yellow Urine Appearance Cloudy A (Clear) Urine pH 5.5 (4.5-7.5) Ur Specific [place] 1.010 (1.000-1.030) Urine Protein 1+ H (Negative) Urine Glucose (UA) Negative (Negative) Urine Ketones Negative (Negative) Urine Blood 2+ H (Negative) Urine Nitrite Positive A (Negative) Urine Bilirubin Negative (Negative) Urine Urobilinogen Negative (Negative) Ur Leukocyte Esterase 3+ H (Negative) Urine WBC (Auto) >30 H (0-5) /hpf Urine RBC (Auto) 0-4 (0-4) /hpf U Hyaline Cast (Auto) 10-30 H (0-5) /lpf U Epithel Cells (Auto) >30 H (0-5) /lpf Urine Bacteria (Auto) 4+ H (Negative) Urine Yeast Not Reportable SARS-CoV-2 (PCR) (Negative) Influenza Type A (PCR) (Neg) Influenza Type B (PCR) (Neg) RSV (RT-PCR) (Neg) 05/15/22 Range/Units Unknown WBC (4.8-10.8) K/ul RBC (3.93-5.22) M/uL Hgb (12.0-16.0) g/dl Hct (34.1-44.9) % MCV (80.0-100.0) fL MCH (25.0-34.0) pg MCHC (32.0-36.0) g/dL RDW Std Deviation (36.4-46.3) fL RDW Coeff of VarB (11.5-14.5) % Plt Count (130-400) K/uL MPV (9.4-12.3) fL Immature Gran % (Auto) % Neut % (Auto) % Lymph % (Auto) % Cache % (Auto) % Eos % (Auto) % Baso % (Auto) % Reticulocyte % (Auto) (0.5-2.0) % Neut # (Auto) (1.4-6.5) K/uL Lymph # (Auto) (1.2-3.4) K/uL Cache # (Auto) (0.24-0.82) K/uL Eos # (Auto) (0-0.50) K/uL Baso # (Auto) (0-0.2) K/uL Reticulocyte # (0.02-0.10) 10^6/uL Immature Gran # (Auto) (0.00-0.02) K/uL Sodium (136-145) mmol/L Potassium (3.5-5.1) mmol/L Chloride (98-107) mmol/L Carbon Dioxide (21-32) mmol/L Anion Gap (3-11) BUN (6-23) mg/dl Creatinine (0.6-1.2) mg/dl Est Cr Clr Drug Dosing ml/min Est GFR ( Amer) ml/min Est GFR (Non-Af Amer) ml/min BUN/Creatinine Ratio (10-20) Glucose (70-99(Fasting)) mg/dl Lactate (0.4-2.0) mmol/L Calcium (8.5-10.1) mg/dl Phosphorus (2.5-4.9) mg/dl Magnesium (1.7-2.4) mg/dl Transferrin (200-360) mg/dl Ferritin (8-388) ng/ml Total Bilirubin (0.2-1.0) mg/dl AST (13-39) U/L ALT (7-52) U/L Alkaline Phosphatase (34-104) U/L Total Creatine Kinase (26-192) U/L Troponin I High Sens (0-14) pg/ml Total Protein (6.0-8.3) gm/dl Albumin (3.4-5.0) gm/dl Globulin (2.5-4.0) gm/dl Albumin/Globulin Ratio (0.9-2) Lipase (11-82) U/L Vitamin B12 (180-914) pg/ml Folate (>5.38) ng/ml TSH (0.300-4.500) uIu/ml Urine Color Urine Appearance (Clear) Urine pH (4.5-7.5) Ur Specific [place] (1.000-1.030) Urine Protein (Negative) Urine Glucose (UA) (Negative) Urine Ketones D (Negative) Urine Blood (Negative) Urine Nitrite (Negative) Urine Bilirubin (Negative) Urine Urobilinogen (Negative) Ur Leukocyte Esterase (Negative) Urine WBC (Auto) (0-5) /hpf Urine RBC (Auto) (0-4) /hpf U Hyaline Cast (Auto) (0-5) /lpf U Epithel Cells (Auto) (0-5) /lpf Urine Bacteria (Auto) (Negative) Urine Yeast SARS-CoV-2 (PCR) NEGATIVE (Negative) Influenza Type A (PCR) Negative (Neg) Influenza Type B (PCR) Negative (Neg) RSV (RT-PCR) Negative (Neg) Imaging Data Radiologist's Impression: Chest X-Ray 05/15/22 19:18 XR chest 1V portable HISTORY: 76 years-old Female near syncope acutely altered mental status COMPARISON: 08/17/2021 TECHNIQUE: AP view of the chest FINDINGS: Cardiac silhouette is enlarged. No pneumothorax, pleural effusion, airspace consolidation or overt pulmonary edema. Degenerative changes of the shoulders and spine. IMPRESSION: Cardiomegaly without acute process. ACT 112: Negative or not required by law. The above report was generated using voice recognition software. It may contain grammatical, syntax or spelling errors. Electronically signed by: Bryan Lyons M.D. 05/15/2022 7:37 PM Abdomen/Pelvis CT 05/15/22 19:[address] WITHOUT CONTRAST CT DOSE: 1760.33 mGy.cm HISTORY: Acute generalized abdominal pain with acute renal failure acute RF, near syncope, fall TECHNIQUE: Multiaxial CT images of the abdomen and pelvis were performed without contrast. A dose lowering technique was utilized adhering to the principles of ALARA. COMPARISON STUDY: Pelvis and hip radiographs 10/19/2021 FINDINGS: Subsegmental bibasilar atelectasis versus scarring. There is no pneumatosis or pneumoperitoneum. Cardiomegaly. The unenhanced spleen measures the upper limits of normal in size. Mild to moderate splenomegaly. Thickening of the adrenal glands suggestive of hyperplasia. Cholelithiasis with equivocal gallbladder wall thickening. No biliary ductal dilation. Unremarkable gallbladder. The unenhanced liver is unremarkable. Cortical thinning of the kidneys with bilateral renal sinus cysts. No renal or ureteral calculi or hydronephrosis identified. Partially decompressed urinary bladder. There is a locule of air within the nondependent urinary bladder lumen. Hysterectomy. Pelvic floor relaxation with cystocele and rectocele. Atherosclerosis of the aorta. No lymphadenopathy identified. Moderate sized hiatal hernia. Duodenal diverticulum. Colonic diverticulosis. The appendix is not visualized. No ascites or mesenteric inflammation. Degenerative changes of the shoulders and spine. Multilevel central canal or neural foraminal narrowing. There are numerous osteolytic skeletal lesions, most pronounced within the sacrum and spine. The largest lesion involves the central to right aspect of the mid sacrum measuring up to approximately 6 cm. Subacute bilateral sacral alar fractures with slight displacement on the right. The large right- sided sacral lesion demonstrates invasion with narrowing involving the right S2 and S3 neural foramen there is mild asymmetric enlargement right piriformis muscle. Lytic lesion involving the T8 vertebral body demonstrates posterior cortical breakthrough with possible anterior epidural extension. Lumbar dextroscoliosis. Left hip total joint arthroplasty. IMPRESSION: 1. Numerous osteolytic skeletal lesions, most pronounced around the spine and sacrum resulting in pathologic subacute appearing sacral alar fractures. There is soft tissue encroachment with narrowing of the right-sided sacral neural foramen. Posterior endplate erosion at T8 with possible anterior fissural extension of disease. Multiple myeloma versus metastasis from unknown primary are the differential considerations. Oncologic workup is needed. 2. Cholelithiasis with equivocal gallbladder wall thickening. Correlation with right upper quadrant abdominal ultrasound recommended. 3. No bowel obstruction or bowel wall thickening. 4. Moderate sized hiatal hernia. 5. Colonic diverticulosis. 6. Additional findings as above. ACT 112: Negative or not required by law. The above report was generated using voice recognition software. It may contain grammatical, syntax or spelling errors. Electronically signed by: Bryan Lyons M.D. 05/15/2022 8:[address] 05/15/22 19:24 CT head/brain wo con CLINICAL HISTORY: 76 years-old Female with near syncope. Acutely altered mental status TECHNIQUE: Multiple axial CT images of the head were obtained without contrast. A dose lowering technique was utilized adhering to the principles of ALARA. COMPARISON: None. FINDINGS: No acute intracranial hemorrhage, midline shift, intracranial mass, hydrocephalus, territorial ischemia or abnormal extra-axial collection. Involutional changes with white matter hypodensities suggestive of chronic microvascular ischemic disease. Cerebral vascular calcifications. The calvarium is intact. Mastoid air cells are clear. Mild loss with partial opacification of the right maxillary sinus. Prior left-sided lens repair. IMPRESSION: No acute intracranial abnormality. ACT 112: Negative or not required by law. The above report was generated using voice recognition software. It may contain grammatical, syntax or spelling errors. Electronically signed by: Bryan Lyons M.D. 05/15/2022 8:02 PM Diagnostic Findings EKG as per my interpretation : Rate 85, NSR, normal axis, T wave abnormalities inferior leads Code Status & VTE Plan VTE Prophylaxis Plan VTE Prophylaxis will be ordered: Yes
[2022-05-16] MEDS ORDERED: POTASSIUM CHLORIDE CRTAB 20 MEQ TABCR PO STA (10:34)
[2022-05-16] MEDS ORDERED: POTASSIUM CHLORIDE PWD 20 MEQ PACK PO ONE (11:49)
[2022-05-16] MEDS ORDERED: Nursing to Pharmacy Communication SCH (12:00)
--- NOTE | 2022-05-16 12:14 | Orthopedic Consultation ---
Date of Consultation May 16, 2022 Assessment & Plan (1) Abnormal computed tomography of abdomen and pelvis: Assessment possible metastatic disease. Plan at this time I discussed with the patient obtaining an MRI of the lumbar spine we may need to include the pelvis. I did explain to her that we will at some point would like to obtain imaging of the entire cervical and thoracic regions. She is concerned about the long periods of time in the scanner. Subsequently we will break these up. I will also obtain x-rays of the left hip and pelvis. History of Present Illness Reason for Consultation: Acute on chronic back pain Attending Physician: Eloy Ny MD History of Present Illness This is a very pleasant 76-year-old female that presents yesterday with generalized weakness. She is complaining of midthoracic back pain which she states has been present for years but has been worsening. She also has lumbosacral discomfort for which she is seeing a chiropractor. She is status post left total hip arthroplasty. She had done wonderfully postop but notes decline recently with hip range of motion as this causes significant pain. She currently denies any radicular complaints denies any numbness or tingling in the lower extremities. During our discussion her daughters at the bedside. She is currently comfortable. She denies any loss of bowel or bladder control. She does live alone and still works. Allergies Allergy/AdvReac Type Severity Reaction Status Date / Time cat dander Allergy Severe Anaphylaxis Verified 05/15/22 21:31 Iodinated Contrast Media Allergy Severe anaphalaxis Verified 05/15/22 21:31 Home Medications Medication Instructions Recorded Confirmed Type levothyroxine 75 mcg capsule 75 mcg PO QAM 05/10/21 05/15/22 History omeprazole 20 mg capsule,delayed 20 mg PO QAM 05/10/21 05/15/22 History release lisinopril 20 1 tab PO QAM 08/11/21 05/15/22 History mg-hydrochlorothiazide 25 mg tablet 3-in-1 Commode #1 ea 08/17/21 05/15/22 Rx Wheeled Walker #1 ea 09/07/21 05/15/22 Rx Wheeled Walker #1 ea 09/07/21 05/15/22 Rx bbctbxb-hozzdiynehkzt-wfnhjoaa 250 1 tab PO Q6H PRN Migraine Headache 05/15/22 05/15/22 History mg-250 mg-65 mg tablet (Excedrin Migraine) ibuprofen 200 mg tablet 200 mg PO Q4 PRN as directed 05/15/22 05/15/22 History Patient History Medical History (Reviewed 05/16/22 @ 00: by Russell Schmidt MD) Acid reflux Controlled and stable Breast lump PRESENT FOR 3 YRS ...MONITORING , RIGHT - STABLE Feeling anxious ABOUT UPCOMING SURGERY / DO NOT LIKE TO KNOW WHAT IS GOING ON - CANNOT DO TWIGHLIGHT SLEEP "TERRIFIED" History of anesthesia reaction OVER 30 YR AGO ; WOKE UP DURING A SURGERY, AWARE OF SURROUNDINGS AND COULD HEAR THINGS - PT IS NOT SURE WHAT SURGERY HTN (hypertension) Hypothyroidism Scoliosis CAN'T LIE FLAT ON BACK AND GET UP ON OWN - NEED A PILLOW IN THE "SMALL OF MY BACK" Surgical History History of breast biopsy X3 BENIGN History of cataract surgery left 2017 History of colonoscopy with polypectomy RECENT, BENIGN...NO FURTHER COLONOSCOPY FOLLOWS NEEDED History of endoscopy X2 OR 3 History of hysterectomy History of laparoscopy History of shoulder surgery RIGHT History of surgery REMOVAL OF ABDOMINAL TUMOR - BENIGN Family History Other Family history of diabetes mellitus Social History Smoking Status: Never smoker Hx Alcohol Use: No Hx Substance Use: No Preferred Language: Thai Communication Ability: Effective Vendor Analyst Required: No Beliefs That Will Affect Care: None marital status: Single Current Living Situation: Alone Other Information That Helps Us Care for You: No Feels Safe at Home: Yes Safety Concerns: Feels Safe At This Time Assistive Devices: Cane and Walker Physical Exam Physical Exam: Sitting up in bed at the bedside. She is alert and oriented. She is not acute distress. Unable to elicit some discomfort to palpation or percussion of the thoracolumbar and sacral region. She is neurologically intact with plantar flexion dorsiflexion sensory bilateral extremities but has marked limitations with left hip flexion compared to the right. Results & Data ([facility]) Vital Signs (Past 12 Hours) Vital Signs Temp Pulse Pulse Resp BP Pulse Ox O2 Del Method 05/16/22 02:00 76 05/16/22 02:01 36.6 C 73 16 95/54 L 97 Room Air
--- NOTE | 2022-05-16 15:10 | CT Scan Report ---
CT SCAN OF THE CHEST WITHOUT IV CONTRAST CLINICAL HISTORY: Osteolytic bone disease. COMPARISON STUDY: Chest x-ray dated 05/15/2022. Abdominal CT dated 05/15/2022 TECHNIQUE: CT scan of the thorax was performed from the thoracic inlet to the upper abdomen. Images are reviewed in the axial, sagittal, and coronal planes. IV contrast was not administered for this ex amination as per the referring clinician. Note that the examination is suboptimal without IV contras t. A dose lowering technique was utilized adhering to the principles of ALARA. The examination is deg raded by streak artifact from the arms which could not be elevated above the chest. CT DOSE: 560.81 mGycm FINDINGS: Thyroid: The thyroid gland is enlarged and heterogeneous. Thoracic aorta: The thoracic aorta is normal in caliber and demonstrates standard 3-vessel arch anato my. Heart: The heart is normal in size and without pericardial effusion. Lungs and pleural spaces: There is no airspace consolidation typical for pneumonia or pleural effusio n. Scarring/atelectasis is noted at the lung bases. The trachea and central airways appear clear. Mediastinum: There is no mediastinal lymphadenopathy. Angie: Not well assessed without IV contrast. Axillae: There is no axillary lymphadenopathy. Upper abdomen: There is a moderate hiatal hernia. Partially visualized upper abdominal viscera is wit hin normal limits. Skeletal structures: The skeletal structures are osteopenic. 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 The largest lesions are seen in the thoracic spine in the bodies T5, of T8, T9, and L1. There is a segmentation abnormality of T6. Arthritic change is seen in the shoulders, with evidence of previous surgery on the right. Soft tissues: A 9 mm indeterminate nodule is suggested in the right breast on image #[id number]. IMPRESSION: 1. 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 This likely represents metast atic disease or myeloma. 2. No additional foci of metastatic disease are identified in the thorax. 3. A 9 mm indeterminate soft tissue nodule is suggested in the right breast. This is not well assesse d by CT. Follow-up with mammography is recommended for further assessment when the patient is clinica lly able. Even if cancerous, this is unlikely to represent the source of metastatic bone disease. 4 There is no airspace consolidation or pleural effusion. 5. Hiatal hernia. 6. Additional findings as above. ACT 112: Negative or not required by law. Electronically signed by: Shemar Herrera M.D. 05/16/2022 3:09 PM
--- NOTE | 2022-05-16 15:15 | XRay Report ---
SINGLE VIEW PELVIS; LEFT FEMUR 3 VIEWS CLINICAL HISTORY: Left hip/leg pain. FINDINGS: An AP view of the pelvis with AP, frog-leg, and crosstable lateral views of the left femur are compared to study dated 09/09/2021. The skeletal structures are osteopenic. There is no radiograph ic evidence of acute fracture involving the hips or bony pelvis. There is no radiographic evidence of left femoral fracture. A bipolar left hip arthroplasty is in near anatomic alignment. No periprosthe tic lucency is seen. Kijb-oa-cfkghpiz arthritic change is noted in the right hip. There is degenerati ve sclerosis of the sacroiliac joints. Enthesophytes arise from the anterior superior iliac spines. L umbosacral spondylosis is partially imaged. The left knee joint is grossly maintained. The overlying soft tissues are within normal limits. Phleboliths are seen throughout the pelvis. IMPRESSION: 1. Osteopenia and degenerative change as above with no acute bone abnormality seen involving the hips are pelvis. 2. There is no radiographic evidence of left femoral fracture. 3. A left hip arthroplasty is in near anatomic alignment. Electronically signed by: Shemar Herrera M.D. 05/16/2022 3:14 PM
--- NOTE | 2022-05-16 17:06 | Hospitalist Progress Note ---
Date of Service May 16, 2022 Assessment & Plan (1) Generalized weakness: Plan: Possible related to UTI, Dehydration CT head negative for acute intracranial abnormality. PT/OT eval fall precaution UTI Urine cx positive for gram negative bacilli Continue IV Rocephin Will follow urine sensitivity JULIETA Possible related to dehydration vs multiple myeloma Creatinine on admission 3.01 Current on IVF Creatinine 1.6 today Continue to hold HCTZ/Lisinopril Multiple myeloma workup pending (Free Keppa/Carlos Alberto monoclonal protein, beta globulin,..) Continue monitor BMP Hypokalemia Potassium 3.1 today Continue K supplement Rhabdo CPK on admission 1146 CPK today 608 Continue IVF Bone Lytic lesion Possible metastatic disease. CT abd/pelvis showed numerous osteolytic skeletal lesions, most pronounced around the spine and sacrum resulting in pathologic subacute appearing sacral alar fractures. Oncology on board Recommended to get a CT chest to r/o any primary lung cancer Ortho eval for the spine lytic lesion Ortho plan to get an MRI of the lumbar spine, possible MRI Cervical and thoracic spines and x-rays of the left hip and pelvis. Recent mammogram result on 05/11/22: The breasts have scattered areas of fibroglandular density. A benign nodule in the upper-outer posterior depth of the right breast is stable. No new dominant mass or clustered microcalcifications suspicious for malignancy are identified. Hypothyroidism Continue Levothyroxine Anemia Hgb 11.3 on admission Hgb 9.8 today hematology and oncology on board Continue monitor Hgb Will check FOBT Elevated troponin Mostly due to dehydration and Rhabdo Denies any chest pain Troponin trending down to 22 . DVT phylaxis. SCDs Re: Occult GI bleed Full code Patient daughter requesting updates from providers. Ms. Agata Myers, contact #[phone]. Admission and Anticipated Discharge Date Admission Date: May 15, 2022 Subjective Pt was seen and examined for follow up Sitting in chair with no acute distress with daughter at bedside She said that dizziness improves Pt said that she feels ok today Spoke to daughter at bedside in detail and answered all her questions Denies any chest pain, palpitation, dizziness and SOB Review of Systems Review of Systems: All systems reviewed & are unremarkable except as noted in Subjective Physical Exam Physical Exam: General- No acute distress Head- atraumatic Eyes- PERRL, EOMI, ENT- oropharynx clear Neck- supple, no JVD Lungs- clear to auscultation Heart- regular rhythm; no murmur Abdomen- normal bowel sounds, soft, nontender Extremities- no calf tenderness Neuro- alert, oriented x 3; PERRL, EOMI; no facial palsy; no dysarthria Skin- warm & dry Results & Data Results & Data ([facility]) Vital Signs (Past 12 Hours) Vital Signs Temp Pulse Pulse Resp BP Pulse Ox O2 Del Method 05/16/22 16:44 82 05/16/22 06:15 71 05/16/22 15:12 36.8 C 75 18 98/65 L 92 Room Air 05/16/22 12:00 37 C 78 20 101/66 94 Room Air
--- NOTE | 2022-05-16 17:42 | Magnetic Resonance Report ---
MR lumbar spine wo con CLINICAL HISTORY: 76 years-old Female with pain. Acute severe low back pain without reported trauma radicular symptoms COMPARISON: CT abdomen and pelvis 05/15/2022 TECHNIQUE: Multiplanar, multi sequence MRI of the lumbar spine was performed without intravenous cont rast. FINDINGS: Motion degraded exam. Bilateral renal sinus cysts redemonstrated. Scattered lytic lesions are again n oted throughout the thoracolumbar spine measuring up to 1.5 cm at L1. No acute pathologic fracture or epidural extension within the lumbar spine identified. Large lytic lesions of the sacrum with pathol ogic fracture in again noted. Mild presacral edema. Conus medullaris terminates at the L1 level. Norm al signal within the imaged thoracic spinal cord and cauda equina. T12-L1: Moderate disc space narrowing with spondylitic spurring, posterior annular disc bulge with l igamentum flavum thickening and moderate facet arthrosis. Flattening of the ventral thecal sac withou t significant central canal stenosis. Mild bilateral foraminal narrowing. L1-L2: Moderate disc space narrowing with spondylitic spurring and small circumferential annular dis c bulge with right paracentral disc osteophyte complex. Ligamentum flavum thickening with severe face t arthrosis. Moderate to severe central canal stenosis with AP dimension of the thecal sac measuring 6 mm. Moderate narrowing of the lateral recesses. Moderate right with [id number]-wv-burascbd left neural fo raminal narrowing. L2-L3: Moderate intervertebral disc space narrowing with spondylitic spurring, small circumferential annular disc bulge with ligamentum flavum thickening and severe facet arthrosis. AP dimension of the thecal sac measures 7 mm resulting in moderate central canal stenosis. Moderate narrowing of the lef t lateral recess. Mild to moderate bilateral foraminal narrowing. L3-L4: Moderate intervertebral disc space narrowing with spondylitic spurring and circumferential an nular disc bulge. Ligamentum flavum thickening with severe facet arthrosis. AP dimension of the theca l sac measures approximately 4 mm. Severe facet arthrosis with severe narrowing of the lateral recess es. Moderate bilateral foraminal narrowing. L4-L5: Moderate intervertebral disc space narrowing with spondylitic spurring and circumferential an nular disc bulge. Ligamental flavum thickening with severe facet arthrosis. AP dimension of the theca l sac measures 5 mm. Severe central canal stenosis with moderate to severe narrowing of the lateral r ecesses. Mild to moderate narrowing of the neural foramen. L5-S1: Degenerative partial bony fusion with spondylitic spurring, ligamentum flavum thickening with advanced facet arthrosis. The central canal is patent. No significant neural foraminal narrowing. Th e extraforaminal portion of the right S1 nerve root is likely abutted from the sacral fracture and ly tic lesion. IMPRESSION: 1. Multifocal lytic lesions of the spine and imaged sacrum are redemonstrated with pathologic subacut e appearing sacral fractures again noted as described on yesterday's CT abdomen and pelvis. Primary d ifferential consideration is multiple melanoma. Lytic metastasis from unknown primary could appear si milarly. 2. No acute pathologic fracture of the lumbar spine. No lumbar epidural extension of disease identifi ed. 3. Discogenic degeneration with ligamentum flavum thickening and facet arthrosis as described above r esulting in multilevel central canal and neural foraminal narrowing. ACT 112: Negative or not required by law. The above report was generated using voice recognition software. It may contain grammatical, syntax o r spelling errors. Electronically signed by: Bryan Lyons M.D. 05/16/2022 5:40 PM
[2022-05-16] MEDS ORDERED: cefTRIAXone SODIUM 2,000 MG in DEXTROSE 5% 50 ML IV SCH (20:00)
--- NOTE | 2022-05-16 23:12 | Consultation ---
Date of Consultation May 16, 2022 Assessment & Plan (1) Lytic bone lesions on xray: Presents with widespread lytic lesions without any immediately suggestion of potential primary visceral malignancy site. CT scan chest does identify a breast nodule but this is apparently static over years with several biopsies benign. There is some thickening of the gallbladder but had area is nontender on exam. Is a non-smoker she is less statistically likely to have a significant aerodigestive malignancy though that is certainly not excluded. She does have a history of heme positive stools but 2020 colonoscopy was unremarkable and imaging does not suggest gross proximal lesions Certainly, myeloma would be high on the list of differential diagnostic possibilities. Interestingly, however, her calcium levels are in good range and total protein levels are not elevated. She is anemic but this might be nons pecific and in part reflective of her renal insufficiency and some rehydration. Any metastatic process that is replacing seeing large parts of her bone marrow could potentially produce a secondary anemia as well. Immediate priority is to assure skeletal stability and rule out any immediately concerning compressive neuropathy. Orthopedics is currently reviewing. If she were to require orthopedic stabilization that would be an opportunity to collect a marrow sample for diagnostic purposes. If orthopedics does not feel that operative intervention is required, would need to arrange for a semielective bone/marrow aspiration and biopsy. She feels very strongly that this will need to be done under anesthesia and coordinating it with the interventional radiology team would also allow us to particularly target an area that shows lytic abnormalities for optimal yield. Would couple this with a PET scan which would be a good baseline imaging study for diagnosis of myeloma but would also help us to more completely exclude any subtle changes in the biliary tree or elsewhere that are not showing as concerning on plain CTs. Occasionally melanoma may present as widespread metastatic disease with an involuted primary and could potentially produce a similar picture but that should be easily diagnosable from a bone/marrow biopsy Serum protein electrophoresis and kappa/lambda light chains are pending. If strongly abnormal that would almost certainly indicate multiple myeloma and would even offer us an opportunity for empiric treatment with initial course of short-term high-dose dexamethasone to try to stabilize her disease as we await the full work-up. Elevated light chains might also give us some insight as to the origin of her initial renal insufficiency. Elevated muscle enzymes probably represent the prolonged immobility in the shower and are not necessarily indicative of a potential source with respect to her presentation with what looks like a metastatic malignancy (2) Acute renal failure: As above, acute renal failure may represent occult elevation of light chains and we await that determination. Interestingly she is not hypercalcemic. We will add uric acid to her a.m. labs to make sure that there is not excessive malignant cell turnover producing that as another contributor to her acute renal insufficiency (3) Anemia: Some dilutional drop in hemoglobin on presentation but certainly does seem to have at least an element of mild to moderate anemia. Myeloma or any other malignant process with widespread skeletal involvement could easily be displacing significant part of the marrow and undermining erythropoiesis. B12 and folic acid levels are in good range, ferritin is adequate though subject to some pseudonormalization and she does have some history of GI blood loss. Hemoglobin remains in more than adequate range currently so can observe for now but may need to consider some cautious iron supplementation. Anticipated marrow biopsy can more definitively help us understand the origins of her anemia Some history of heme positive stool may need to consider whether GI work-up should eventually be pursued with a EGD and even capsule endoscopy that we may want to see what her primary diagnosis is with but apparent skeletal metastases before deciding if/when to pursue those studies (4) Generalized weakness: The origins of her acute leg weakness are not entirely clear though there was some mild element of metabolic disarray. Elevated liver enzymes are probably secondary phenomenon of her prolonged immobility in the shower. Not clear how this might relate to what appears to be a widespread skeletal metastatic process other than the obvious concern over nerve or cord impingement and we await further work-up from orthopedics with regards to the level of concern for that. Fortunately, she is already regained sufficient strength to be ambulatory in her hospital room indicating that at least some component of this was transient metabolic in nature Head CT does not suggest any gross lesions and she does not have meningeal or mental status signs to suggest a leptomeningeal malignant process Plan Immediate issues are metabolic and orthopedic assessment and stabilization. She is already making good progress with islam of normal calcium levels and improving creatinine. Await further orthopedics review. If she does require orthopedic stabilization that would be an opportunity for bone/marrow tissue sampling. We await SPEP and kappa/lambda light chains which are grossly abnormal might suggest empiric treatment with steroids even as we pursue further work-up. Otherwise as she regains adequate strength sufficient for discharge and stabilizes metabolically, would anticipate continuing as outpatient work-up with PET/CT scan and, if tissue not obtained as an inpatient, image directed bone/marrow sampling probably with accompanying anesthesia through a regional interventional radiology team Hemoglobin is mildly decreased and there could be some role for cautious iron supplementation. Not clear that she needs emergent GI work-up that we cannot completely exclude an occult proximal GI source for her metastatic malignancy. 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 Longstanding lesion in the upper outer quadrant of the right breast has been biopsied apparently on several occasions and benign. She has no specific previ ous history of malignancy. Status post THR left side and spring, trouble recovering ever since then. She does have longstanding scoliosis and has always had some back discomfort and difficulty lying on her back. Other than postop x-rays, she had no other films prior to this admission. She worked with chiropractic through the summer with some worsening discomfort. On day of admission she developed sudden weakness in her legs and had to sit down on her shower unable to get up for some hours until her daughter came and broke into her house. Upon presentation the emergency department she was noted have a moderate elevation of creatinine and marked elevation of muscle enzymes as well as hypokalemia and was admitted with rhabdomyolysis. Imaging shows widespread lytic lesions but without any discrete abnormalities other than some thickening of the gallbladder and a lesion in the right breast consistent with her historical lesion. With hydration her creatinine is returning towards baseline. She is able to bear weight and ambulate in her hospital room. Orthopedics consult is ongoing Other than the stable and biopsy benign lesion in the right breast her mammograms have been historically unremarkable. Colonoscopy in 2020 was also apparently unremarkable though she does have some heme positive stools. Pap smears when they were done were unremarkable. There is never been any issues of concerning skin lesions or skin cancers of which she is aware No unusual pattern of malignancy or blood disorders that runs in the family Allergies Allergy/AdvReac Type Severity Reaction Status Date / Time cat dander Allergy Severe Anaphylaxis Verified 05/15/22 21:31 Iodinated Contrast Media Allergy Severe anaphalaxis Verified 05/15/22 21:31 Home Medications Medication Instructions Recorded Confirmed Type levothyroxine 75 mcg capsule 75 mcg PO QAM 05/10/21 05/15/22 History omeprazole 20 mg capsule,delayed 20 mg PO QAM 05/10/21 05/15/22 History release lisinopril 20 1 tab PO QAM 08/11/21 05/15/22 History mg-hydrochlorothiazide 25 mg tablet 3-in-1 Commode #1 ea 08/17/21 05/15/22 Rx Wheeled Walker #1 ea 09/07/21 05/15/22 Rx Wheeled Walker #1 ea 09/07/21 05/15/22 Rx [id number]-[id number] 250 1 tab PO Q6H PRN Migraine Headache 05/15/22 05/15/22 History mg-250 mg-65 mg tablet (Excedrin Migraine) ibuprofen 200 mg tablet 200 mg PO Q4 PRN as directed 05/15/22 05/15/22 History Patient History Medical History Acid reflux Controlled and stable Breast lump PRESENT FOR 3 YRS ...MONITORING , RIGHT - STABLE Feeling anxious ABOUT UPCOMING SURGERY / DO NOT LIKE TO KNOW WHAT IS GOING ON - CANNOT DO TWIGHLIGHT SLEEP "TERRIFIED" History of anesthesia reaction OVER 30 YR AGO ; WOKE UP DURING A SURGERY, AWARE OF SURROUNDINGS AND COULD HEAR THINGS - PT IS NOT SURE WHAT SURGERY HTN (hypertension) Hypothyroidism Scoliosis CAN'T LIE FLAT ON BACK AND GET UP ON OWN - NEED A PILLOW IN THE "SMALL OF MY BACK" Surgical History History of breast biopsy X3 BENIGN History of cataract surgery left 2017 History of colonoscopy with polypectomy RECENT, BENIGN...NO FURTHER COLONOSCOPY FOLLOWS NEEDED History of endoscopy X2 OR 3 History of hysterectomy History of laparoscopy History of shoulder surgery RIGHT History of surgery REMOVAL OF ABDOMINAL TUMOR - BENIGN Family History Other Family history of diabetes mellitus Social History Smoking Status: Never smoker Hx Alcohol Use: No Hx Substance Use: No Preferred Language: Faroese Communication Ability: Effective Spray Operator Required: No Beliefs That Will Affect Care: None marital status: Single Current Living Situation: Alone Other Information That Helps Us Care for You: No Feels Safe at Home: Yes Safety Concerns: Feels Safe At This Time Assistive Devices: Cane and Walker Review of Systems Review of Systems: Primary issues are the relatively abrupt onset of weakness in her proximal lower extremities and long-term back discomfort. Physical Exam Physical Exam: Vital signs are stable, Alert, appropriate, in no acute distress currently Some subtle bilateral tonsillar adenopathy seems more likely inflammatory in the context of her recent upper respiratory-like infection. Otherwise no pathologic adenopathy is noted in the cervical, supraclavicular, axillary regions. There are no inguinal masses or adenopathy. Head or eyes nose and throat exam is otherwise unremarkable Lungs are clear to percussion auscultation without focal rubs rales or wheezes There is a pea-sized firm but easily mobile nodule in the upper outer quadrant of the right breast but otherwise breasts are pendulous without masses. Cardiac rhythm seems regular without pathological murmurs or rubs Abdomen is soft and there specifically no marked right upper quadrant tenderness, marked liver enlargement or irregularity. Otherwise no abdominal masses are noted. Extremities show no DVT. Muscular strength seems minimally decreased and symmetric in the lower extremities, sensation seems grossly intact Results & Data ([facility]) Vital Signs (Past 12 Hours) Vital Signs Temp Pulse Pulse Resp BP Pulse Ox O2 Del Method 05/16/22 19:34 36.7 C 84 20 113/76 93 Room Air 05/16/22 16:44 82 05/16/22 15:12 36.8 C 75 18 98/65 L 92 Room Air 05/16/22 12:00 37 C 78 20 101/66 94 Room Air Laboratory Results Abnormal lab results 05/15/22 05/15/22 05/16/22 Range/Units 22:37 22:37 07:23 RBC 3.37 L (3.93-5.22) M/uL Hgb 9.8 L (12.0-16.0) g/dl Hct 28.4 L (34.1-44.9) % Neut # (Auto) 6.94 H (1.4-6.5) K/uL Immature Gran # (Auto) 0.06 H (0.00-0.02) K/uL Sodium 134 L (136-145) mmol/L Potassium 2.4 L* (3.5-5.1) mmol/L Chloride 97 L (98-107) mmol/L BUN 47 H (6-23) mg/dl Creatinine 2.51 H D (0.6-1.2) mg/dl BUN/Creatinine Ratio (10-20) Transferrin 184 L (200-360) mg/dl Total Creatine Kinase 944 H (26-192) U/L Troponin I High Sens 22.4 H (0-14) pg/ml Urine Protein (Negative) Urine Blood (Negative) Ur Leukocyte Esterase (Negative) Urine WBC (Auto) (0-5) /hpf 05/16/22 05/16/22 Range/Units 07:23 Unknown RBC (3.93-5.22) M/uL Hgb (12.0-16.0) g/dl Hct (34.1-44.9) % Neut # (Auto) (1.4-6.5) K/uL Immature Gran # (Auto) (0.00-0.02) K/uL Sodium (136-145) mmol/L Potassium 3.1 L D (3.5-5.1) mmol/L Chloride (98-107) mmol/L BUN 38 H (6-23) mg/dl Creatinine 1.60 H D (0.6-1.2) mg/dl BUN/Creatinine Ratio 23.8 H (10-20) Transferrin (200-360) mg/dl Total Creatine Kinase 608 H (26-192) U/L Troponin I High Sens (0-14) pg/ml Urine Protein Trace H (Negative) Urine Blood 1+ H (Negative) Ur Leukocyte Esterase 2+ H (Negative) Urine WBC (Auto) >30 H (0-5) /hpf Diagnostic Findings Chest X-Ray 05/15/22 19:18 XR chest 1V portable HISTORY: 76 years-old Female near syncope acutely altered mental status COMPARISON: 08/17/2021 TECHNIQUE: AP view of the chest FINDINGS: Cardiac silhouette is enlarged. No pneumothorax, pleural effusion, airspace consolidation or overt pulmonary edema. Degenerative changes of the shoulders and spine. IMPRESSION: Cardiomegaly without acute process. ACT 112: Negative or not required by law. The above report was generated using voice recognition software. It may contain grammatical, syntax or spelling errors. Electronically signed by: Bryan Lyons M.D. 05/15/2022 7:37 PM Abdomen/Pelvis CT 05/15/22 19:[address] WITHOUT CONTRAST CT DOSE: 1760.33 mGy.cm HISTORY: Acute generalized abdominal pain with acute renal failure acute RF, near syncope, fall TECHNIQUE: Multiaxial CT images of the abdomen and pelvis were performed without contrast. A dose lowering technique was utilized adhering to the principles of ALARA. COMPARISON STUDY: Pelvis and hip radiographs 10/19/2021 FINDINGS: Subsegmental bibasilar atelectasis versus scarring. There is no pneumatosis or pneumoperitoneum. Cardiomegaly. The unenhanced spleen measures the upper limits of normal in size. Mild to moderate splenomegaly. Thickening of the adrenal glands suggestive of hyperplasia. Cholelithiasis with equivocal gallbladder wall thickening. No biliary ductal dilation. Unremarkable gallbladder. The unenhanced liver is unremarkable. Cortical thinning of the kidneys with bilateral renal sinus cysts. No renal or ureteral calculi or hydronephrosis identified. Partially decompressed urinary bladder. There is a locule of air within the nondependent urinary bladder lumen. Hysterectomy. Pelvic floor relaxation with cystocele and rectocele. Atherosclerosis of the aorta. No lymphadenopathy identified. Moderate sized hiatal hernia. Duodenal diverticulum. Colonic diverticulosis. The appendix is not visualized. No ascites or mesenteric inflammation. Degenerative changes of the shoulders and spine. Multilevel central canal or neural foraminal narrowing. There are numerous osteolytic skeletal lesions, most pronounced within the sacrum and spine. The largest lesion involves the central to right aspect of the mid sacrum measuring up to approximately 6 cm. Subacute bilateral sacral alar fractures with slight displacement on the right. The large right- sided sacral lesion demonstrates invasion with narrowing involving the right S2 and S3 neural foramen there is mild asymmetric enlargement right piriformis muscle. Lytic lesion involving the T8 vertebral body demonstrates posterior cortical breakthrough with possible anterior epidural extension. Lumbar dextroscoliosis. Left hip total joint arthroplasty. IMPRESSION: 1. Numerous osteolytic skeletal lesions, most pronounced around the spine and sa georgi resulting in pathologic subacute appearing sacral alar fractures. There is soft tissue encroachment with narrowing of the right-sided sacral neural foramen. Posterior endplate erosion at T8 with possible anterior fissural extension of disease. Multiple myeloma versus metastasis from unknown primary are the differential considerations. Oncologic workup is needed. 2. Cholelithiasis with equivocal gallbladder wall thickening. Correlation with right upper quadrant abdominal ultrasound recommended. 3. No bowel obstruction or bowel wall thickening. 4. Moderate sized hiatal hernia. 5. Colonic diverticulosis. 6. Additional findings as above. ACT 112: Negative or not required by law. The above report was generated using voice recognition software. It may contain grammatical, syntax or spelling errors. Electronically signed by: Bryan Lyons M.D. 05/15/2022 8:[address] 05/15/22 19:24 CT head/brain wo con CLINICAL HISTORY: 76 years-old Female with near syncope. Acutely altered mental status TECHNIQUE: Multiple axial CT images of the head were obtained without contrast. A dose lowering technique was utilized adhering to the principles of ALARA. COMPARISON: None. FINDINGS: No acute intracranial hemorrhage, midline shift, intracranial mass, hydrocephalus, territorial ischemia or abnormal extra-axial collection. Involutional changes with white matter hypodensities suggestive of chronic microvascular ischemic disease. Cerebral vascular calcifications. The calvarium is intact. Mastoid air cells are clear. Mild loss with partial opacification of the right maxillary sinus. Prior left-sided lens repair. IMPRESSION: No acute intracranial abnormality. ACT 112: Negative or not required by law. The above report was generated using voice recognition software. It may contain grammatical, syntax or spelling errors. Electronically signed by: Bryan Lyons M.D. 05/15/2022 8:02 PM Femur X-Ray 05/16/22 00:00 SINGLE VIEW PELVIS; LEFT FEMUR 3 VIEWS CLINICAL HISTORY: Left hip/leg pain. FINDINGS: An AP view of the pelvis with AP, frog-leg, and crosstable lateral views of the left femur are compared to study dated 09/09/2021. The skeletal structures are osteopenic. There is no radiographic evidence of acute fracture involving the hips or bony pelvis. There is no radiographic evidence of left femoral fracture. A bipolar left hip arthroplasty is in near anatomic alignment. No periprosthetic lucency is seen. [id number] arthritic change is noted in the right hip. There is degenerative sclerosis of the sacroiliac joints. Enthesophytes arise from the anterior superior iliac spines. Lumbosacral spondylosis is partially imaged. The left knee joint is grossly maintained. The overlying soft tissues are within normal limits. Phleboliths are seen throughout the pelvis. IMPRESSION: 1. Osteopenia and degenerative change as above with no acute bone abnormality seen involving the hips are pelvis. 2. There is no radiographic evidence of left femoral fracture. 3. A left hip arthroplasty is in near anatomic alignment. Electronically signed by: Shemar Herrera M.D. 05/16/2022 3:[address] 05/16/22 10:30 CT SCAN OF THE CHEST WITHOUT IV CONTRAST CLINICAL HISTORY: Osteolytic bone disease. COMPARISON STUDY: Chest x-ray dated 05/15/2022. Abdominal CT dated 05/15/2022 TECHNIQUE: CT scan of the thorax was performed from the thoracic inlet to the upper abdomen. Images are reviewed in the axial, sagittal, and coronal planes. IV contrast was not administered for this examination as per the referring clinician. Note that the examination is suboptimal without IV contrast. A dose lowering technique was utilized adhering to the principles of ALARA. The examination is degraded by streak artifact from the arms which could not be elevated above the chest. CT DOSE: 560.81 mGycm FINDINGS: Thyroid: The thyroid gland is enlarged and heterogeneous. Thoracic aorta: The thoracic aorta is normal in caliber and demonstrates standard 3-vessel arch anatomy. Heart: The heart is normal in size and without pericardial effusion. Lungs and pleural spaces: There is no airspace consolidation typical for pneumonia or pleural effusion. Scarring/atelectasis is noted at the lung bases. The trachea and central airways appear clear. Mediastinum: There is no mediastinal lymphadenopathy. Angie: Not well assessed without IV contrast. Axillae: There is no axillary lymphadenopathy. Upper abdomen: There is a moderate hiatal hernia. Partially visualized upper abdominal viscera is within normal limits. Skeletal structures: The skeletal structures are osteopenic. 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 The largest lesions are seen in the thoracic spine in the bodies T5, of T8, T9, and L1. There is a segmentation abnormality of T6. Arthritic change is seen in the shoulders, with evidence of previous surgery on the right. Soft tissues: A 9 mm indeterminate nodule is suggested in the right breast on image #[id number]. IMPRESSION: 1. 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 This likely represents metastatic disease or myeloma. 2. No additional foci of metastatic disease are identified in the thorax. 3. A 9 mm indeterminate soft tissue nodule is suggested in the right breast. This is not well assessed by CT. Follow-up with mammography is recommended for further assessment when the patient is clinically able. Even if cancerous, this is unlikely to represent the source of metastatic bone disease. 4 There is no airspace consolidation or pleural effusion. 5. Hiatal hernia. 6. Additional findings as above. ACT 112: Negative or not required by law. Electronically signed by: Shemar Herrera M.D. 05/16/2022 3:09 PM Lumbar Spine MRI 05/16/22 12:17 MR lumbar spine wo con CLINICAL HISTORY: 76 years-old Female with pain. Acute severe low back pain without reported trauma radicular symptoms COMPARISON: CT abdomen and pelvis 05/15/2022 TECHNIQUE: Multiplanar, multi sequence MRI of the lumbar spine was performed without intravenous contrast. FINDINGS: Motion degraded exam. Bilateral renal sinus cysts redemonstrated. Scattered lytic lesions are again noted throughout the thoracolumbar spine measuring up to 1.5 cm at L1. No acute pathologic fracture or epidural extension within the lumbar spine identified. Large lytic lesions of the sacrum with pathologic fracture in again noted. Mild presacral edema. Conus medullaris terminates at the L1 level. Normal signal within the imaged thoracic spinal cord and cauda equina. T12-L1: Moderate disc space narrowing with spondylitic spurring, posterior annular disc bulge with ligamentum flavum thickening and moderate facet arthrosis. Flattening of the ventral thecal sac without significant central canal stenosis. Mild bilateral foraminal narrowing. L1-L2: Moderate disc space narrowing with spondylitic spurring and small circumferential annular disc bulge with right paracentral disc osteophyte complex. Ligamentum flavum thickening with severe facet arthrosis. Moderate to severe central canal stenosis with AP dimension of the thecal sac measuring 6 mm. Moderate narrowing of the lateral recesses. Moderate right with [id number] left neural foraminal narrowing. L2-L3: Moderate intervertebral disc space narrowing with spondylitic spurring, small circumferential annular disc bulge with ligamentum flavum thickening and severe facet arthrosis. AP dimension of the thecal sac measures 7 mm resulting in moderate central canal stenosis. Moderate narrowing of the left lateral recess. Mild to moderate bilateral foraminal narrowing. L3-L4: Moderate intervertebral disc space narrowing with spondylitic spurring and circumferential annular disc bulge. Ligamentum flavum thickening with severe facet arthrosis. AP dimension of the thecal sac measures approximately 4 mm. Severe facet arthrosis with severe narrowing of the lateral recesses. Moderate bilateral foraminal narrowing. L4-L5: Moderate intervertebral disc space narrowing with spondylitic spurring and circumferential annular disc bulge. Ligamental flavum thickening with severe facet arthrosis. AP dimension of the thecal sac measures 5 mm. Severe central canal stenosis with moderate to severe narrowing of the lateral recesses. Mild to moderate narrowing of the neural foramen. L5-S1: Degenerative partial bony fusion with spondylitic spurring, ligamentum flavum thickening with advanced facet arthrosis. The central canal is patent. No significant neural foraminal narrowing. The extraforaminal portion of the right S1 nerve root is likely abutted from the sacral fracture and lytic lesion. IMPRESSION: 1. Multifocal lytic lesions of the spine and imaged sacrum are redemonstrated with pathologic subacute appearing sacral fractures again noted as described on yesterday's CT abdomen and pelvis. Primary differential consideration is multiple melanoma. Lytic metastasis from unknown primary could appear similarly. 2. No acute pathologic fracture of the lumbar spine. No lumbar epidural extension of disease identified. 3. Discogenic degeneration with ligamentum flavum thickening and facet arthrosis as described above resulting in multilevel central canal and neural foraminal narrowing. ACT 112: Negative or not required by law. The above report was generated using voice recognition software. It may contain grammatical, syntax or spelling errors. Electronically signed by: Bryan Lyons M.D. 05/16/2022 5:40 PM Pelvis X-Ray 05/16/22 12:17 SINGLE VIEW PELVIS; LEFT FEMUR 3 VIEWS CLINICAL HISTORY: Left hip/leg pain. FINDINGS: An AP view of the pelvis with AP, frog-leg, and crosstable lateral views of the left femur are compared to study dated 09/09/2021. The skeletal structures are osteopenic. There is no radiographic evidence of acute fracture involving the hips or bony pelvis. There is no radiographic evidence of left femoral fracture. A bipolar left hip arthroplasty is in near anatomic alignment. No periprosthetic lucency is seen. [id number] arthritic change is noted in the right hip. There is degenerative sclerosis of the sacroiliac joints. Enthesophytes arise from the anterior superior iliac spines. Lumbosacral spondylosis is partially imaged. The left knee joint is grossly maintained. The overlying soft tissues are within normal limits. Phleboliths are seen throughout the pelvis. IMPRESSION: 1. Osteopenia and degenerative change as above with no acute bone abnormality seen involving the hips are pelvis. 2. There is no radiographic evidence of left femoral fracture. 3. A left hip arthroplasty is in near anatomic alignment. Electronically signed by: Shemar Herrera M.D. 05/16/2022 3:14 PM PG Care Time/CCT Total # of Minutes Spent Total Time Spent with Patient: Total time spent is greater than 50% in coordination of care (as documented) at patient's floor/unit and/or counseling patient: [place] [address] Inpt Consult Level 5 Patient Type New History Expanded Problem Focused Exam Expanded Problem Focused Medical Decision Making High Complexity Diagnoses Lytic bone lesions on xray M89.9 Acute renal failure N17.9 Acute renal failure type: unspecified Anemia D64.9 Generalized weakness R53.1 (1) Acute renal failure Acute renal failure type: unspecified Qualified Code(s): N17.9 - Acute kidney failure, unspecified
[2022-05-17] MEDS: LEVOTHYROXINE SODIUM 75 MCG TABLET PO SCH (05:57)
[2022-05-17 06:45] LABS: Hematocrit (blood only) 30.3 % (34.1-44.9); Hemoglobin 10.2 g/dl (12.0-16.0); Mean Corpuscular Hemoglobin 29.1 pg (25.0-34.0); Mean Corpuscular Hgb Conc 33.7 g/dL (32.0-36.0); Mean Corpuscular Volume 86.3 fL (80.0-100.0); Platelet Count 418 K/uL (130-400); RDW Coefficient of Variation 14.3 % (11.5-14.5); RDW Standard Deviation 45.3 fL (36.4-46.3); Red Blood Count 3.51 M/uL (3.93-5.22); White Blood Count 8.41 K/ul (4.8-10.8)
[2022-05-17 07:23] LABS: Albumin Level 3.5 gm/dl (3.4-5.0); BUN Creatinine Ratio 19.6 (10-20); Bilirubin,Total 0.4 mg/dl (0.2-1.0); Calcium 9.3 mg/dl (8.5-10.1); Creatinine Clr Calc Pharmacy 52.4 ml/min; Est GFR (African American) 61.9 ml/min; Est GFR (Non-African American) 53.4 ml/min; Globulin 3.5 gm/dl (2.5-4.0); Potassium 3.3 mmol/L (3.5-5.1); Uric Acid 9.3 mg/dl (2.6-7.2)
[2022-05-17] MEDS: PANTOprazole 40 MG TAB PO SCH (09:03)
--- NOTE | 2022-05-17 11:29 | Hospitalist Progress Note ---
Date of Service May 17, 2022 Assessment & Plan (1) Generalized weakness: Plan: Possible related to UTI, Dehydration CT head negative for acute intracranial abnormality. PT/OT eval fall precaution UTI Urine cx positive for E.coli (pansensitive) Continue IV Rocephin Will follow urine sensitivity JULIETA - resolved Possible related to dehydration vs multiple myeloma Creatinine on admission 3 Current on IVF Creatinine 1.0 today Continue to hold HCTZ/Lisinopril Multiple myeloma workup pending (Free Keppa/Carlos Alberto monoclonal protein, beta globulin,..) Continue monitor BMP Hypokalemia replete and monitor Rhabdo CPK on admission 1146 CPK down today in 200s Continue IVF while inpt Bone Lytic lesion Possible metastatic disease. CT abd/pelvis showed numerous osteolytic skeletal lesions, most pronounced around the spine and sacrum resulting in pathologic subacute appearing sacral alar fractures. Oncology on board Recommended to get a CT chest to r/o any primary lung cancer Ortho eval for the spine lytic lesion Ortho plan to get an MRI of the lumbar spine, possible MRI Cervical and thoracic spines and x-rays of the left hip and pelvis. Recent mammogram result on 05/11/22: The breasts have scattered areas of fibroglandular density. A benign nodule in the upper-outer posterior depth of the right breast is stable. No new dominant mass or clustered microcalcifications suspicious for malignancy are identified. Concern for MM Multiple myeloma workup pending (Free Keppa/Carlos Alberto monoclonal protein, beta globulin,..) Hem/Onc - Dr. Cifuentes consulted - plan for outpt bone marrow biopsy Hypothyroidism Continue Levothyroxine Anemia Hgb 11.3 on admission Hgb 10 today hematology and oncology on board Continue monitor Hgb FOBT negat. Elevated troponin Mostly due to dehydration and Rhabdo Denies any chest pain Troponin trending down to 22 . DVT phylaxis. SCDs Re: Occult GI bleed Full code Patient daughter - Ms. Agata Myers, contact #[phone]. Admission and Anticipated Discharge Date Admission Date: May 15, 2022 Subjective Pt was seen and examined for follow up back pain, anemia, possible MM Sitting on th edge of the bed, with no acute distress Denies any chest pain, palpitation, dizziness and SOB She reports that Dr. Jimenez saw her earlier, and there was no plan for surgery at this time. Discussed that she needs bone marrow biopsy, and she feels very anxious about it, however is aware and understands the plan. PT/OT pending Review of Systems Review of Systems: All systems reviewed & are unremarkable except as noted in Subjective Physical Exam Physical Exam: General- No acute distress Head- at raumatic Eyes- PER RL, EOMI, ENT- terence pharynx clear Neck - supple, no JVD L ungs- clear to aus cultation Heart- r egular rhythm; no murmur Abdomen- no rmal bowel sounds, soft, nontender E xtremities- no ca lf tenderness Neur o- alert, oriented x 3; PERRL, EOMI; no facial palsy; no dysarthria Skin - warm & dry Results & Data Results & Data ([facility]) Vital Signs (Past 12 Hours) Vital Signs Temp Pulse Pulse Resp BP Pulse Ox O2 Del Method 05/17/22 07:00 37.0 C 78 18 136/86 99 Room Air 05/17/22 03:40 36.7 C 79 20 136/78 95 Room Air 05/16/22 23:43 85 Laboratory Results 05/17/22 05/17/22 05/16/22 Range/Units 06:11 06:11 09:10 WBC 8.41 (4.8-10.8) K/ul RBC 3.51 L (3.93-5.22) M/uL Hgb 10.2 L (12.0-16.0) g/dl Hct 30.3 L (34.1-44.9) % MCV 86.3 (80.0-100.0) fL MCH 29.1 (25.0-34.0) pg MCHC 33.7 (32.0-36.0) g/dL RDW Std Deviation 45.3 (36.4-46.3) fL RDW Coeff of Barbra 14.3 (11.5-14.5) % Plt Count 418 H (130-400) K/uL MPV 10.0 (9.4-12.3) fL Sodium 140 (136-145) mmol/L Potassium 3.3 L (3.5-5.1) mmol/L Chloride 106 (98-107) mmol/L Carbon Dioxide 27 (21-32) mmol/L Anion Gap 7 (3-11) BUN 20 (6-23) mg/dl Creatinine 1.02 D (0.6-1.2) mg/dl Est Cr Clr Drug Dosing 52.4 ml/min Est GFR ( Amer) 61.9 ml/min Est GFR (Non-Af Amer) 53.4 ml/min BUN/Creatinine Ratio 19.6 (10-20) Glucose 90 (70-99(Fasting)) mg/dl Uric Acid 9.3 H (2.6-7.2) mg/dl Calcium 9.3 (8.5-10.1) mg/dl Total Bilirubin 0.4 (0.2-1.0) mg/dl AST 25 (13-39) U/L ALT 27 (7-52) U/L Alkaline Phosphatase 115 H (34-104) U/L Total Creatine Kinase 265 H (26-192) U/L Total Protein 7.0 (6.0-8.3) gm/dl Albumin 3.5 (3.4-5.0) gm/dl Globulin 3.5 (2.5-4.0) gm/dl Albumin/Globulin Ratio 1.0 (0.9-2) Stool Occult Bld Scrn Negative (Negative) Medications Administered Current Inpatient Medications Acetaminophen (Acetaminophen 500 Mg Tab) 500 mg PO Q6H PRN PRN Reason: pain/fever Stop: 06/14/22 22:47 Last Admin: 05/17/22 09:06 Dose: 500 mg Promethazine HCl 12.5 mg/ (Sodium Chloride) 50.5 mls @ 202 mls/hr IV Q6H PRN PRN Reason: Nausea And Vomiting Stop: 06/14/22 22:47 Ceftriaxone Sodium 2,000 mg/ (Dextrose) 70 mls @ 100 mls/hr IV Q24H ALAINA; Protocol Stop: 05/26/22 19:59 Last Infusion: 05/16/22 22:38 Dose: Infused Levothyroxine Sodium (Levothyroxine Sodium 75 Mcg Tablet) 75 mcg PO DAILYBB [facility] Stop: 06/15/22 06:29 Last Admin: 05/17/22 05:57 Dose: 75 mcg Lorazepam (Lorazepam 0.5 Mg Tab) 0.25 mg PO TID PRN PRN Reason: Anxiety Stop: 06/14/22 22:47 Last Admin: 05/16/22 21:14 Dose: 0.25 mg Pantoprazole Sodium (Pantoprazole 40 Mg Tab) 40 mg PO QAM ALAINA Stop: 06/15/22 08:59 Last Admin: 05/17/22 09:03 Dose: 40 mg Potassium Chloride (Potassium Chloride Crtab 20 Meq Tabcr) 20 meq PO NOW STA Stop: 05/17/22 11:33 Tramadol HCl (Tramadol Hcl 50 Mg Tablet) 25 - 50 mg PO Q4H PRN PRN Reason: Pain Stop: 06/14/22 22:47
[2022-05-17] MEDS ORDERED: POTASSIUM CHLORIDE CRTAB 20 MEQ TABCR PO STA (11:32)
[2022-05-17] MEDS ORDERED: POTASSIUM CHLORIDE PWD 20 MEQ PACK PO ONE (12:30)
--- NOTE | 2022-05-17 13:20 | Discharge Summary ---
Date of Service May 17, 2022 Admission HPI Per Admitting Provider History obtained from patient, family, and records. Medical history significant for hypertension, hypothyroidism, PUD, diverticulosis, hemorrhoids, right breast nodule. Last confinement August 2021 under Orthopedics service for elective left hip replacement surgery. Patient noted left hip pain complaints last month. No lower extremity radiation. Symptoms attributed to arthritis, possible piriformis syndrome by PCP. Outpatient chiropractor referral made. Chiropractor concurred with PCP diagnosis as per patient Patient prescribed ibuprofen course which improved pain. Patient not feeling well the last few days. Yesterday morning, patient was in the shower when she felt dizzy, lightheaded and weak. She had to lay down in the shower. Patient unable to get up. Was on the shower floor for about 6 hours until patient found by daughter. Patient denies chest pain, SOB, headache, abdominal pain, black/bloody stools, hematuria symptoms. Transient dysuria symptoms a few weeks ago relieved by [id number] topical Rx. Laryngitis from last week which patient gets from time to time due to her work at a [employer]. No unusual weight loss. EMS called to patient's home. EMS helped patient get up from the shower. ED evaluation not recommended. Patient advised to follow-up with PCP today. Patient seen at PCP's office today. SBP noted to be 80s. PVCs noted on EKG. Abnormal labs noted outpatient. Hemoglobin 11.3, WBC 15.9 Serum creatinine 2.9, potassium 2.7, anion gap 17, ALT 42, alk phos 166 Patient directed to the ER for evaluation. Lowest SBP of 90s noted at the ER. IV ceftriaxone administered at the ER possible UTI. 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 [employer] Admission Exam Per Admitting Provider GENERAL: Slightly anxious, obese, no respiratory distress SKIN: Normal color, warm HEENT: [place] palpebral conjunctivae, no ptosis, dry buccal mucosa NECK : Supple, short neck, no tenderness CHEST : CTA, no tenderness HEART : RRR, apical systolic murmur ABDOMEN: Some distention, nontender RECTAL : Intact sphincter, brown stool (FOBT positive) BACK : Low back tenderness, negative SLR EXTREMITIES : Minimal LE swelling, no LE tenderness, no other conspicuous deformities noted NEUROLOGIC : Coherent, no facial asymmetry, no other gross focality Principal Diagnosis UTI JULIETA Anemia Bone lytic lesions Concern for MM Discharge Exam General- No acute distress Head- atraumatic Eyes- PERRL, EOMI, ENT- oropharynx clear Neck- supple, no JVD Lungs- clear to auscultation Heart- regular rhythm; no murmur Abdomen- normal bowel sounds, soft, nontender Extremities- no calf tenderness Neuro- alert, oriented x 3; PERRL, EOMI; no facial palsy; no dysarthria Skin- warm & dry Discharge Data Allergies Allergy/AdvReac Type Severity Reaction Status Date / Time cat dander Allergy Severe Anaphylaxis Verified 05/15/22 21:31 Iodinated Contrast Media Allergy Severe anaphalaxis Verified 05/15/22 21:31 Consultations 05/15/22 20:44 ED Decision to Admit Stat 05/16/22 03:05 Consult Oncology Routine 05/16/22 10:33 Consult Orthopedic Surgery Routine Ordered Studies 05/15/22 19:24 CT abd pelvis wo con Stat FINDINGS: Subsegmental bibasilar atelectasis versus scarring. There is no pneumatosis or pneumoperitoneum. Cardiomegaly. The unenhanced spleen measures the upper limits of normal in size. Mild to moderate splenomegaly. Thickening of the adrenal glands suggestive of hyperplasia. Cholelithiasis with equivocal gallbladder wall thickening. No biliary ductal dilation. Unremarkable gallb ladder. The unenhanced liver is unremarkable. Cortical thinning of the kidneys with bilateral renal sinus cysts. No renal or ureteral calculi or hydronephrosis identified. Partially decompressed urinary bladder. There is a locule of air within the nondependent urinary bladder lumen. Hysterectomy. Pelvic floor relaxation with cystocele and rectocele. Atherosclerosis of the aorta. No lymphadenopathy identified. Moderate sized hiatal hernia. Duodenal diverticulum. Colonic diverticulosis. The appendix is not visualized. No ascites or mesenteric inflammation. Degenerative changes of the shoulders and spine. Multilevel central canal or neural foraminal narrowing. There are numerous osteolytic skeletal lesions, most pronounced within the sacrum and spine. The largest lesion involves the central to right aspect of the mid sacrum measuring up to approximately 6 cm. Subacute bilateral sacral alar fractures with slight displacement on the right. The large right- sided sacral lesion demonstrates invasion with narrowing involving the right S2 and S3 neural foramen there is mild asymmetric enlargement right piriformis muscle. Lytic lesion involving the T8 vertebral body demonstrates posterior c ortical breakthrough with possible anterior epidural extension. Lumbar dextroscoliosis. Left hip total joint arthroplasty. IMPRESSION: 1. Numerous osteolytic skeletal lesions, most pronounced around the spine and sacrum resulting in pathologic subacute appearing sacral alar fractures. There is soft tissue encroachment with narrowing of the right-sided sacral neural foramen. Posterior endplate erosion at T8 with possible anterior fissural extension of disease. Multiple myeloma versus metastasis from unknown primary are the differential considerations. Oncologic workup is needed. 2. Cholelithiasis with equivocal gallbladder wall thickening. Correlation with right upper quadrant abdominal ultrasound recommended. 3. No bowel obstruction or bowel wall thickening. 4. Moderate sized hiatal hernia. 5. Colonic diverticulosis. 6. Additional findings as above. CT head/brain wo con Stat FINDINGS: No acute intracranial hemorrhage, midline shift, intracranial mass, hydrocephalus, territorial ischemia or abnormal extra-axial collection. Involutional changes with white matter hypodensities suggestive of chronic microvascular ischemic disease. Cerebral vascular calcifications. The calvarium is intact. Mastoid air cells are clear. Mild loss with partial opacification of the right maxillary sinus. Prior left-sided lens repair. IMPRESSION: No acute intracranial abnormality. 05/16/22 10:30 CT chest without contrast [CT chest diagnostic wo con] Routine FINDINGS: Thyroid: The thyroid gland is enlarged and heterogeneous. Thoracic aorta: The thoracic aorta is normal in caliber and demonstrates standard 3-vessel arch anatomy. Heart: The heart is normal in size and without pericardial effusion. Lungs and pleural spaces: There is no airspace consolidation typical for pneumonia or pleural effusion. Scarring/atelectasis is noted at the lung bases. The trachea and central airways appear clear. Mediastinum: There is no mediastinal lymphadenopathy. Angie: Not well assessed without IV contrast. Axillae: There is no axillary lymphadenopathy. Upper abdomen: There is a moderate hiatal hernia. Partially visualized upper abdominal viscera is within normal limits. Skeletal structures: The skeletal structures are osteopenic. 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 The largest lesions are seen in the thoracic spine in the bodies T5, of T8, T9, and L1. There is a segmentation abnormality of T6. Arthritic change is seen in the shoulders, with evidence of previous surgery on the right. Soft tissues: A 9 mm indeterminate nodule is suggested in the right breast on image #[id number]. IMPRESSION: 1. 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 This likely represents metastatic disease or myeloma. 2. No additional foci of metastatic disease are identified in the thorax. 3. A 9 mm indeterminate soft tissue nodule is suggested in the right breast. This is not well assessed by CT. Follow-up with mammography is recommended for further assessment when the patient is clinically able. Even if cancerous, this is unlikely to represent the source of metastatic bone disease. 4 There is no airspace consolidation or pleural effusion. 5. Hiatal hernia. 6. Additional findings as above. 05/16/22 12:17 MR lumbar spine wo con Routine FINDINGS: Motion degraded exam. Bilateral renal sinus cysts redemonstrated. Scattered lytic lesions are again noted throughout the thoracolumbar spine measuring up to 1.5 cm at L1. No acute pathologic fracture or epidural extension within the lumbar spine identified. Large lytic lesions of the sacrum with pathologic fracture in again noted. Mild presacral edema. Conus medullaris terminates at the L1 level. Normal signal within the imaged thoracic spinal cord and cauda equina. T12-L1: Moderate disc space narrowing with spondylitic spurring, posterior annular disc bulge with ligamentum flavum thickening and moderate facet arthrosis. Flattening of the ventral thecal sac without significant central canal stenosis. Mild bilateral foraminal narrowing. L1-L2: Moderate disc space narrowing with spondylitic spurring and small circumferential annular disc bulge with right paracentral disc osteophyte complex. Ligamentum flavum thickening with severe facet arthrosis. Moderate to severe central canal stenosis with AP dimension of the thecal sac measuring 6 mm. Moderate narrowing of the lateral recesses. Moderate right with [id number] left neural foraminal narrowing. L2-L3: Moderate intervertebral disc space narrowing with spondylitic spurring, small circumferential annular disc bulge with ligamentum flavum thickening and severe facet arthrosis. AP dimension of the thecal sac measures 7 mm resulting in moderate central canal stenosis. Moderate narrowing of the left lateral recess. Mild to moderate bilateral foraminal narrowing. L3-L4: Moderate intervertebral disc space narrowing with spondylitic spurring and circumferential annular disc bulge. Ligamentum flavum thickening with severe facet arthrosis. AP dimension of the thecal sac measures approximately 4 mm. Severe facet arthrosis with severe narrowing of the lateral recesses. Moderate bilateral foraminal narrowing. L4-L5: Moderate intervertebral disc space narrowing with spondylitic spurring and circumferential annular disc bulge. Ligamental flavum thickening with severe facet arthrosis. AP dimension of the thecal sac measures 5 mm. Severe central canal stenosis with moderate to severe narrowing of the lateral recesses. Mild to moderate narrowing of the neural foramen. L5-S1: Degenerative partial bony fusion with spondylitic spurring, ligamentum flavum thickening with advanced facet arthrosis. The central canal is patent. No significant neural foraminal narrowing. The extraforaminal portion of the right S1 nerve root is likely abutted from the sacral fracture and lytic lesion. IMPRESSION: 1. Multifocal lytic lesions of the spine and imaged sacrum are redemonstrated with pathologic subacute appearing sacral fractures again noted as described on yesterday's CT abdomen and pelvis. Primary differential consideration is multiple melanoma. Lytic metastasis from unknown primary could appear similarly. 2. No acute pathologic fracture of the lumbar spine. No lumbar epidural extension of disease identified. 3. Discogenic degeneration with ligamentum flavum thickening and facet arthrosis as described above resulting in multilevel central canal and neural foraminal narrowing. Hospital Course (1) Generalized weakness: Possible related to UTI, Dehydration CT head negative for acute intracranial abnormality. PT/OT eval fall precaution UTI Urine cx positive for E.coli (pansensitive) Continue IV Rocephin Will follow urine sensitivity JULIETA - resolved Possible related to dehydration vs multiple myeloma Creatinine on admission 3 Current on IVF Creatinine 1.0 today Continue to hold HCTZ/Lisinopril Multiple myeloma workup pending (Free Keppa/Carlos Alberto monoclonal protein, beta glob ulin,..) Continue monitor BMP Recommend to hold lisinoprilHCTZ on discharge for next few days, and then restart at half dose, patient will need outpatient follow-up Hypokalemia replete and monitor Rhabdo CPK on admission 1146 CPK down today in 200s Continue IVF while inpt Bone Lytic lesion Possible metastatic disease. CT abd/pelvis showed numerous osteolytic skeletal lesions, most pronounced around the spine and sacrum resulting in pathologic subacute appearing sacral alar fractures. Oncology on board Recommended to get a CT chest to r/o any primary lung cancer Ortho eval for the spine lytic lesion Ortho plan to get an MRI of the lumbar spine, possible MRI Cervical and thoracic spines and x-rays of the left hip and pelvis. Imaging obtained by orthopedics, no plan for surgical intervention at this time. Recent mammogram result on 05/11/22: The breasts have scattered areas of fibroglandular density. A benign nodule in the upper-outer posterior depth of the right breast is stable. No new dominant mass or clustered microcalcifications suspicious for malignancy are identified. Concern for MM Multiple myeloma workup pending (Free Keppa/Carlos Alberto monoclonal protein, beta globulin,..) Hem/Onc - Dr. Cifuentes consulted - plan for outpt bone marrow biopsy Hypothyroidism Continue Levothyroxine Anemia Hgb 11.3 on admission Hgb 10 today hematology and oncology on board Continue monitor Hgb FOBT negat. Elevated troponin Mostly due to dehydration and Rhabdo Denies any chest pain Troponin trended down to 22 Total Time Total Time Spent Total Time Spent (In Minutes): 40 Discharge Plan Discharge Items Patient Disposition: Home - Home Health Services Reason For Visit: ARF, COMP UTI, TROP ELEV Discharge Diagnosis: UTI JULIETA Anemia Bone lytic lesions Concern for MM Activity: Per Instructions section Non-emergency contact: Primary Care Provider Call non-emergency contact if: you have any medication questions and your symptoms worsen Follow-up/Referrals: Alesha Reddy DO [Primary Care Provider] - Diet: Heart Healthy Addtl Attending Provider Instructions: Follow-up with your primary care doctor within 1 week. Finish antibiotic treatment with cefdinir as prescribed. For next 3 days, do not take your lisinoprilHCTZ.Then resume at half of the dose.Discuss this further with your primary care doctor at the next appointment.If you can, check your blood pressure at home and write down your numbers. Discuss your numbers with your primary care doctor. During your hospital stay, you have seen hematology/oncology, Dr. Cifuentes. He is setting up for you bone marrow biopsy. You will be contacted about the appointment. For pain, take Tylenol 1000 mg 3-times a day, max daily dose is 3000 mg a day. You can also use lidocaine patch, that you can obtain [id number], often under the name Salonpas. Pending Studies at Discharge: Yes Studies:: Free kappa lambda light chain, Protein electrophoresis Stand-Alone Forms: [employer], Smoking Cessation Medications and DC Order Prescriptions: New potassium chloride 10 mEq capsule, extended release 10 meq PO DAILY Qty: 3 0RF cefdinir 300 mg capsule 300 mg PO BID 4 Days Qty: 8 0RF Continued (DME) [facility] See Rx Instructions .MEDSUPPLY Qty: 1 0RF Rx Instructions: As directed (DME) [facility] See Rx Instructions .MEDSUPPLY Qty: 1 0RF Rx Instructions: As directed omeprazole 20 mg capsule,delayed release(DR/EC) 20 mg PO QAM levothyroxine 75 mcg capsule 75 mcg PO QAM (DME) 3-in-1 [facility] See Rx Instructions .MEDSUPPLY Qty: 1 0RF Rx Instructions: As directed ibuprofen 200 mg Tablet 200 mg PO Q4 PRN (Reason: as directed) Excedrin Migraine 250-250-65 mg Tablet 1 tab PO Q6H PRN (Reason: Migraine Headache) lisinopril-hydrochlorothiazide 20-25 mg Tablet 1 tab PO QAM Discharge Orders: Discharge Order (Routine); Ordered 05/17/22 Ordered By: Blayne Baires Admission Data Admit Date/Time: 05/15/22 22:46 Attending Provider: Blayne Baires Admit Provider: Jasiel Arrieta Primary Care Provider: Alesha Reddy Other Providers: Jasiel Arrieta ; Shyanne Mai ; Kiki Herrera ; Noe Cifuentes ; Ava Pinedo ; Man Mccrary ; Evan Bustos ; Mike Osei ; Chelsy Mistry ; Agustin,No Attending ; Thai Jimenez Wilkerson
[2022-05-17 13:36] LABS: Albumin 3.1 g/dL (3.8-4.8); Alpha 1 Globulin 0.5 g/dL (0.2-0.3); Alpha 2 Globulin 0.9 g/dL (0.5-0.9); Beta-1-Globulin 0.3 g/dL (0.4-0.6); Beta-2-Globulin 0.3 g/dL (0.2-0.5); Free Kappa 242.9 mg/L (3.3-19.4); Free Lambda 9.6 mg/L (5.7-26.3); Monoclonal Protein Band 1 0.9 g/dL (NONE DETECTED); Monoclonal Protein Band 2 DNR g/dL (NONE DETECTED); Monoclonal Protein Band 3 DNR g/dL (NONE DETECTED); Total Protein 6.2 g/dL (6.1-8.1)
--- NOTE | 2022-05-17 23:15 | Electrocardiogram Report ---
Test Reason : Blood Pressure : / mmHG Vent. Rate : 083 BPM Atrial Rate : 083 BPM P-R Int : 130 ms QRS Dur : 084 ms QT Int : 388 ms P-R-T Axes : 000 011 -12 degrees QTc Int : 455 ms Poor data quality, interpretation may be adversely affected Sinus rhythm with Premature supraventricular complexes Cannot rule out Anterior infarct , age undetermined Nonspecific ST and T wave abnormality Abnormal ECG When compared with ECG of 17-AUG-2021 10:23, Premature supraventricular complexes are now Present T wave inversion now evident in Inferior leads Nonspecific T wave abnormality now evident in Anterolateral leads Confirmed by Maicol Garcia ([id number]) on 05/17/2022 11:15:05 PM Referred By: Alesha Reddy Confirmed By:Maicol Garcia
== END 2022-05-17 14:55 | disposition home health service (06) | DRG 683 ==
LOC: ED 17:57 → SUATTDRO 22:46 → 2S 22:46